=== PATIENT | female | born 1965 | race African-American/Black ===

== ENCOUNTER 2016-06-17 11:21 | Emergency (ER) | payer MEDICAID, OTHER ==
--- NOTE | 2016-06-17 11:39 | ER Document Report ---
ED Medical Screen (RME) - General Chief Complaint: Psych Problem Stated Complaint: IVC W/PAPERS Notes: Patient is a 50-year-old female, past medical history behavioral issues with frequent verbal outbursts, presents on IVC paperwork from [facility] after she was found to be mentally ill and acutely psychotic. Patient will scream obscenities and then will be calm and answer questions. She is requesting a diet Pepsi. Denies any thoughts of hurting herself or anyone else. I have greeted and performed a rapid initial assessment of this patient. A comprehensive ED assessment and evaluation of the patient, analysis of test results and completion of the medical decision making process will be conducted by additional ED providers. TRAVEL OUTSIDE OF THE [place] IN LAST 30 DAYS: No - Related Data Allergies/Adverse Reactions: STEROID Allergy (Uncoded 12/19/15 07:27) Past Medical History - Past Medical History Cardiac Medical History: Reports: Hx Hypertension Neurological Medical History: Reports: Hx Seizures Endocrine Medical History: Reports: Hx Diabetes Mellitus Type 2. Denies: Hx Diabetes Mellitus Type 1 Renal/ Medical History: Denies: Hx Peritoneal Dialysis Psychiatric Medical History: Reports: Hx Bipolar Disorder, Hx Depression, Hx Schizophrenia - Immunizations Hx Diphtheria, Pertussis, Tetanus Vaccination: Yes Physical Exam - Vital signs Vitals: Temp Pulse Resp BP Pulse Ox 98.4 F 98 18 136/109 H 98 06/17/16 11:22 06/17/16 11:22 06/17/16 11:22 06/17/16 11:22 06/17/16 11:22 Course - Vital Signs Vital signs: Temp Pulse Resp BP Pulse Ox 98.4 F 98 18 136/109 H 98 06/17/16 11:22 06/17/16 11:22 06/17/16 11:22 06/17/16 11:22 06/17/16 11:22
[2016-06-17 11:54] LABS: ABSOLUTE LYMPHOCYTES (AUTO) 2.2 10^3/uL (0.5-4.7); ABSOLUTE MONOCYTES (AUTO) 0.7 10^3/uL (0.1-1.4); ABSOLUTE NEUT (AUTO) 3.9 10^3/uL (1.7-8.2); BASOPHILS % (AUTO) 0.7 % (0-2); EOSINOPHILS % (AUTO) 0.4 % (0-6); HEMATOCRIT 41.8 % (36.0-47.0); HEMOGLOBIN 14.3 g/dL (12.0-15.5); HGB HCT DIFFERENCE 1.1; LYMPHOCYTES % (AUTO) 32.2 % (13-45); MEAN CORPUSCULAR HEMOGLOBIN 34.1 pg (27.0-33.4); MEAN CORPUSCULAR HGB CONC 34.3 g/dL (32.0-36.0); MEAN CORPUSCULAR VOLUME 100 fl (80-97); MONOCYTES % (AUTO) 10.7 % (3-13); RED CELL DISTRIBUTION WIDTH 14.4 % (11.5-14.0); WHITE BLOOD COUNT 6.9 10^3/uL (4.0-10.5)
[2016-06-17 12:09] LABS: ALANINE AMINOTRANSFERASE 24 U/L (9-52); ALBUMIN 4.7 g/dL (3.5-5.0); ALKALINE PHOSPHATASE 84 U/L (38-126); ANION GAP 12 (5-19); ASPARTATE AMINO TRANSFERASE 23 U/L (14-36); BILIRUBIN,DIRECT 0.3 mg/dL (0.0-0.4); BLOOD UREA NITROGEN 16 mg/dL (7-20); CALCIUM 10.1 mg/dL (8.4-10.2); CARBON DIOXIDE 34 mmol/L (22-30); CHLORIDE 96 mmol/L (98-107); GLUCOSE 177 mg/dL (75-110); SODIUM 142.4 mmol/L (137-145); TOTAL PROTEIN 8.2 g/dL (6.3-8.2)
[2016-06-17 12:10] LABS: ALCOHOL < 10 mg/dL (NONE DETECTED); POTASSIUM 4.1 mmol/L (3.6-5.0)
--- NOTE | 2016-06-17 14:38 | ER Document Report ---
ED General - General Time seen by provider: 12:00 Mode of Arrival: Ambulatory Information source: Transfer Record Cannot obtain history due to: Uncooperative TRAVEL OUTSIDE OF THE [place] IN LAST 30 DAYS: No <RHIANNA MORGAN - Last Filed: 06/17/16 18:22> <PAULINA WADE - Last Filed: 06/17/16 23:46> <DORY MONGE - Last Filed: 06/18/16 07:51> - General Chief Complaint: Psych Problem Stated Complaint: IVC W/PAPERS Notes: 50-year-old female arrives with involuntary commitment papers stating that she is psychotic and homicidal. Patient does not provide useful history to this examiner Physical Exam: General: Alert, respiratory distress HEENT: Normocephalic. Atraumatic. PERRLA. Extraocular movements intact. Oropharynx clear. Neck: Supple. Non-tender. Respiratory: No respiratory distress. Clear and equal breath sounds bilaterally. Cardiovascular: Regular rate and rhythm. Abdominal: Normal Inspection. Soft, non-tender. No distension. Normal Bowel Sounds. Back: Non-tender. No deformity or step off. Extremities: Extremity is warm to plus pulses of cyanosis no edema Neurological: Patient appears to have intact motor function all extremities but will not cooperate with formal neurologic testing Psychological: Patient will look around but is nonverbal and draws her arms back and makes a fist in a threatening manner when questioned by physician Skin: Warm. Dry. Normal color. (RHIANNA MORGAN) - Related Data Allergies/Adverse Reactions: STEROID Allergy (Uncoded 12/19/15 07:27) Past Medical History - General Cannot obtain history due to: Uncooperative - Social History Smoking Status: Unknown if Ever Smoked Family History: Other - Unobtainable due to altered mental status - Medical History Medical History: Other - Unobtainable due to altered mental status - Past Medical History Cardiac Medical History: Reports: Hx Hypertension Neurological Medical History: Reports: Hx Seizures Endocrine Medical History: Reports: Hx Diabetes Mellitus Type 2. Denies: Hx Diabetes Mellitus Type 1 Renal/ Medical History: Denies: Hx Peritoneal Dialysis Psychiatric Medical History: Reports: Hx Bipolar Disorder, Hx Depression, Hx Schizophrenia - Immunizations Hx Diphtheria, Pertussis, Tetanus Vaccination: Yes <RHIANNA MORGAN - Last Filed: 06/17/16 18:22> Review of Systems - Review of Systems -: Yes ROS unobtainable due to patient's medical condition <RHIANNA MORGAN - Last Filed: 06/17/16 18:22> Course - Laboratory Result Diagrams: 06/17/16 11:40 06/17/16 11:40 <RHIANNA MORGAN - Last Filed: 06/17/16 18:22> - Laboratory Result Diagrams: 06/17/16 11:40 06/17/16 11:40 <PAULINA WADE - Last Filed: 06/17/16 23:46> - Laboratory Result Diagrams: 06/17/16 11:40 06/17/16 11:40 <DORY MONGE - Last Filed: 06/18/16 07:51> - Re-evaluation Re-evalutation: 06/17/16 14:37 Patient at this time is not provided a urine sample without that would materially change her disposition she is medically clear for mental health evaluation 06/17/16 18:20 Involuntary commitment papers were filled out by patient's mental health provider in the outpatient setting. Mental health provider he reports that patient's behavior is at her baseline but given the fact that her behavior currently seems poorly controlled think it would be prudent to keep her here in IVC paperwork at least overnight for reassessment in a.m. (RHIANNA MORGAN) - Vital Signs Vital signs: Temp Pulse Resp BP Pulse Ox 97.6 F 98 16 142/87 H 95 06/18/16 05:00 06/18/16 05:00 06/18/16 05:00 06/18/16 05:00 06/18/16 05:00 - Laboratory Laboratory results interpreted by me: 06/17/16 06/17/16 06/18/16 11:40 11:40 01:00 MCV 100 H MCH 34.1 H RDW 14.4 H Chloride 96 L Carbon Dioxide 34 H Glucose 177 H Urine Urobilinogen 2.0 H Salicylates < 1.0 L Acetaminophen < 10 L - EKG Interpretation by Me Additional EKG results interpreted by me: 06/17/16 23:46 EKG is reviewed and interpreted by me. EKG shows sinus tachycardia with a rate of [address] segment elevation or depression. No ischemic T wave inversions. NH interval and QRS duration are within normal range. QTC intervals prolonged. Old EKG for comparison is from 01/15/2016. (PAULINA WADE) Discharge <RHIANNA MORGAN - Last Filed: 06/17/16 18:22> <PAULINA WADE - Last Filed: 06/17/16 23:46> <DORY MONGE - Last Filed: 06/18/16 07:51> - Discharge Clinical Impression: Schizophrenia Qualifiers: Schizophrenia type: paranoid schizophrenia Qualified Code(s): F20.0 - Paranoid schizophrenia Condition: Fair Disposition: HOME, SELF-CARE Additional Instructions: BE SURE TO TAKE YOUR MEDICATION PRESCRIBED. FOLLOW UP WITH [facility]. RETURN TO THE EMERGENCY ROOM IF ANY NEW OR WORSENING SYMPTOMS. Referrals: VICKY ODONNELL MD [Primary Care Provider] - Follow up as needed
[2016-06-18 01:20] LABS: APPEARANCE,URINE CLEAR; BILIRUBIN,URINE NEGATIVE (NEGATIVE); GLUCOSE, URINE NEGATIVE (NEGATIVE); KETONES,URINE NEGATIVE (NEGATIVE); LEUKOCYTE ESTERASE,URINE NEGATIVE (NEGATIVE); NITRITE,URINE NEGATIVE (NEGATIVE); PROTEIN,URINE NEGATIVE (NEGATIVE); URINE SPECIFIC GRAVITY 1.019
[2016-06-18 01:35] LABS: URINE BARBITURATES SCREEN NEGATIVE; URINE METHADONE SCREEN NEGATIVE; URINE OPIATES LOW NEGATIVE; URINE PHENCYCLIDINE SCREEN NEGATIVE
[2016-06-18] MEDS ORDERED: HALOPERIDOL LACTATE INJ 5 MG/1 ML VIAL IM ONE (01:44)
[2016-06-18] MEDS ORDERED: LORAZEPAM INJ 2 MG/1 ML VIAL IM ONE (01:44)
--- NOTE | 2016-06-18 07:38 | EKG REPORT ---
SEVERITY:- ABNORMAL ECG - SINUS TACHYCARDIA LEFT ATRIAL ABNORMALITY S1,S2,S3 PATTERN LEFT VENTRICULAR HYPERTROPHY PROBABLE INFERIOR INFARCT, OLD BORDERLINE PROLONGED QT INTERVAL : Confirmed by: Abdi Coles MD 18-Jun-2016 07:37:06
[2016-06-18 08:59] VITALS: BP 142/83
--- NOTE | 2016-06-18 12:07 | PSYCHOLOGICAL NOTE ---
Psych Note - Psych Note Psych Note: 50-year-old female arrives with involuntary commitment papers stating that she is psychotic and homicidal. Patient discloses that "that man lie." She continued to state that she just wanted to go home. Patient denies suicidal homicidal ideation; "I never want to hurt myself." Patient was able to provide is black as her sponsor and provided phone number. Patient was calm and speaking in quite childlike voice while drinking her diet pepsi and speaking with clinician. Patient was observed presenting at what is likely considered her new baseline, based on multiple prior episodes to include presentation after multiple days of being medicated, as calm one moment engaging in conversation with soft child like tone of voice, to abruptly yelling out with raspy voice nonsensical type statements, and or demands. Note, this presentation is congruent with previous episodes. Patient is alert and oriented to person, place, time and circumstance. Clinician notes that the patient does attempt to say her name is different when she does not wish to engage this appears to be behavioral and not psychosis. Mood is labile with labile affects. Patient denies suicidal/homicidal ideations , intent, plan, or means. Patient denies A/V H. Thought processes were tangential beyond initial conversation requiring more than a one word answer. Conversational speech was labile, as noted above, patient presented at times with child like voice brittany, and other times with loud and raspy voice. This is considered to be behavioral in nature, specifically an intentional use of the changing voice birttany. Intellectual abilities were estimated within average range. Attention and focus were fair. Insight, judgment, and impulse control were poor. Diagnosis: 295.90 (F20.9) Schizophrenia, per history Patient is psychiatrically cleared for discharge to return to her apartment, and follow up with her psychiatric provider [facility] this week. Patient is considered to be presenting at her baseline, which does include behavioral disturbances, as noted above (yelling out). Patient denies wanting to harm herself or anyone else. Dr. Allison was consulted in regards to the care and management of this patient. ED MD is in not in agreement with recommendations and disposition.
--- NOTE | 2016-06-18 12:09 | PSYCHOLOGICAL NOTE ---
Psych Note - Psych Note Psych Note: 50-year-old female arrives with involuntary commitment papers stating that she is psychotic and homicidal. Patient was observed this morning presenting at what is likely considered her new baseline, based on multiple prior episodes to include presentation after multiple days of being medicated, as calm one moment engaging in conversation with soft child like tone of voice, to abruptly yelling out with raspy voice nonsensical type statements, and or demands. Note, this presentation is congruent with previous episodes. Patient is alert and oriented to person, place, time and circumstance. Mood is labile with labile affects. Patient denies suicidal/homicidal ideations, intent , plan, or means. Patient denies A/V H. Thought processes were tangential beyond initial conversation requiring more than a one word answer. Conversational speech was labile, as noted above, patient presented at times with child like voice brittany, and other times with loud and raspy voice. This is considered to be behavioral in nature, specifically an intentional use of the changing voice brittany. Intellectual abilities were estimated within average range. Attention and focus were fair. Insight, judgment, and impulse control were poor. Diagnosis: 295.90 (F20.9) Schizophrenia, per history Patient is psychiatrically cleared for discharge to return to her apartment, and follow up with her psychiatric provider [facility] this week. Patient is considered to be presenting at her baseline, which does include behavioral disturbances, as noted above (yelling out). Patient denies wanting to harm herself or anyone else. Dr. Allison was consulted in regards to the care and management of this patient. ED MD is in agreement with recommendations and disposition.
== END 2016-06-18 08:00 | disposition home or self-care (01) ==
LOC: ER 11:21
DX: F20.0 Paranoid schizophrenia (principal); I10 Essential (primary) hypertension; E11.9 Type 2 diabetes mellitus without complications; R45.850 Homicidal ideations
CPT/HCPCS: 93005; 99285; 96372; 36415; 80307 ×4; 85025; 80053; 81001; 93010; J1630; J2060

== ENCOUNTER 2016-08-17 13:58 | Emergency (ER) | payer OTHER, MEDICAID ==
--- NOTE | 2016-08-17 14:25 | ER Document Report ---
Addendum entered and electronically signed by ELLA SANDS LPC 08/17/16 17: 04: Discharge - Discharge Clinical Impression: Schizophrenia Condition: Fair Disposition: HOME, SELF-CARE Instructions: Schizophrenia ([facility]) Additional Instructions: Schizophrenia Schizophrenia is a chemical disorder that affects how the brain functions. The exact cause is unknown, but it tends to run in families. It is NOT caused by emotional trauma. Schizophrenia causes disordered thinking, including unusual beliefs and inability to "process" happenings around the patient. Patients with schizophrenia benefit greatly from medicine. These medicines are called antipsychotics. Never stop the medicine without the doctor 's approval. Counselling may help the patient deal with his disease. Schizophrenics require a very ordered environment. Stresses and sudden changes may bring out symptoms. Drugs and alcohol abuse may become problems. Contact the counsellor or crisis line if there are thoughts of suicide or of harming others, or if you become aware of unusual thoughts or beliefs. Patient to fill script for Haldol krista and follow up with already scheduled appointment at [facility] on 08/19/2016 (). Sponsor, Ms. Corrales made aware of plan of care for discharge. Referrals: [facility] [Outside] - Follow up as needed Original Note: ED Psych Disorder / Suicide <ELLA SANDS - Last Filed: 08/17/16 16:58> - General TRAVEL OUTSIDE OF THE [place] IN LAST 30 DAYS: No <GRICEL COOK - Last Filed: 08/17/16 17:14> - General Chief Complaint: Psych Problem Stated Complaint: PSYCH EVAL Time Seen by Provider: 08/17/16 14:22 Notes: The patient is a 51-year-old female, past medical history, paranoid schizophrenia, hypertension, diabetes, and by EMS after she was agitated and screaming. On arrival to the ER, she is requesting a diet Pepsi. She will intermittently scream and then will become cooperative. She has not taken her medication for a few weeks. Denies chest pain, shortness of breath, hallucinations, nausea, vomiting, suicidal ideation or homicidal ideation. (GRICEL COOK) - HPI Notes: Patient is a 51 year old female who presented to the ED today via with erratic behavior. Patient is familiar to this clinician and the [facility] Behavioral Health Team. She was last seen by [facility] Behavioral Health team in June 2016. She reported she went to [facility] today after her Sponsor, Ms. Corrales came to her home to take her. She identified she has an appointment with [facility] and plans on going (good insight and judgment). Today patient has been cooperative and easily redirected by this clinician (good impulse control). She was able to make fair eye contact. She carried on dialogue conversation and initiated conversation. She was alert and oriented. She did not make SI/HI comments or gestures and these were not presenting concerns. [facility] Behavioral Health Paunch Trimmer/Patient Liaison contacted [facility] for care coordination. Patient was seen on 08/12/2016. She last received long lasting Haldol July 29 and is due for the next one 08/19/2016 (). They stated patient came to their office today, was running around, screaming and yelling, and then left. Contacted Sponsor, Hien Corrales (listed as emergency contact on demographic sheet). She identified LE have been to patient's home 3-4 times since Tuesday. She noted patient went to [facility] last and today asking to get her shot. She stated last [facility] told patient she was a week early. Today she stated patient said she needed her shot, her provider (Angeli Macias) was busy seeing another client, patient said she needed to go outside, staff approved and then called the police. Sponsor stated patient has misplaced her Haldol at home which is 5MG QAM and 10MG QHS. She also stated patient is prescribed Trazodone 50MG QHS. Diagnosis: 295.90 (F20.9) Schizophrenia, per history Impression/Plan: Recommendation to discharge patient home. This patient is well known to this hospital and the Behavioral Health team. She appears to be at baseline given she is easily redirected by this clinician and can be calmed down rather quickly. She is being administered Halodol while in the ED and being provided with a script for Haldol pills she takes. She is to follow up with her already scheduled appointment at [facility] 08/19/2016 (). Her sponsor, Ms. Corrales is aware of plan of care. Consulted with Dr. Allison regarding the management and care of patient. (ELLA SANDS) - Related Data Allergies/Adverse Reactions: STEROID Allergy (Uncoded 12/19/15 07:27) Past Medical History - General Information source: Patient - Social History Smoking Status: Current Every Day Smoker Family History: Other - Unobtainable due to altered mental status - Past Medical History Cardiac Medical History: Reports: Hx Hypertension Neurological Medical History: Reports: Hx Seizures Endocrine Medical History: Reports: Hx Diabetes Mellitus Type 2. Denies: Hx Diabetes Mellitus Type 1 Renal/ Medical History: Denies: Hx Peritoneal Dialysis Psychiatric Medical History: Reports: Hx Bipolar Disorder, Hx Depression, Hx Schizophrenia - Immunizations Hx Diphtheria, Pertussis, Tetanus Vaccination: Yes <GRICEL COOK - Last Filed: 08/17/16 17:14> Review of Systems <SHAVONELLA - Last Filed: 08/17/16 16:58> <GRICEL COOK - Last Filed: 08/17/16 17:14> - Review of Systems Notes: REVIEW OF SYSTEMS: CONSTITUTIONAL: -fevers, -chills EENT: -eye pain, -difficulty swallowing, -nasal congestion CARDIOVASCULAR:-chest pain, -syncope. RESPIRATORY: -cough, -SOB GASTROINTESTINAL: -abdominal pain, - nausea, -vomiting, -diarrhea GENITOURINARY: -dysuria, -hematuria MUSCULOSKELETAL: -back pain, -neck pain SKIN: -rash or skin lesions. HEMATOLOGIC: -easy bruising or bleeding. LYMPHATIC: -swollen, enlarged glands. NEUROLOGICAL: -altered mental status or loss of consciousness, -headache, - neurologic symptoms PSYCHIATRIC: +agitation ALL OTHER SYSTEMS REVIEWED AND NEGATIVE. (GRICEL COOK) Physical Exam <ELLA SANDS - Last Filed: 08/17/16 16:58> <GRICEL COOK - Last Filed: 08/17/16 17:14> - Notes Notes: PHYSICAL EXAMINATION: GENERAL: Well-appearing, well-nourished and in no acute distress. HEAD: Atraumatic, normocephalic. EYES: Pupils equal round and reactive to light, extraocular movements intact, sclera anicteric, conjunctiva are normal. ENT: nares patent, oropharynx clear without exudates. Moist mucous membranes. NECK: Normal range of motion, supple without lymphadenopathy LUNGS: Breath sounds clear to auscultation bilaterally and equal. No wheezes rales or rhonchi. HEART: Tachycardia, regular rhythm ABDOMEN: Soft, nontender, normoactive bowel sounds. No guarding, no rebound. No masses appreciated. EXTREMITIES: Normal range of motion, no pitting or edema. No cyanosis. NEUROLOGICAL: Cranial nerves grossly intact. Normal speech, normal gait. Normal sensory and motor exams. PSYCH: Agitated, but then will become cooperative. No suicidal or homicidal ideation. SKIN: Warm, Dry, normal turgor, no rashes or lesions noted. (GRICEL COOK) Course - Laboratory Result Diagrams: 08/17/16 14:30 08/17/16 14:30 <ELLA SANDS - Last Filed: 08/17/16 16:58> - Laboratory Result Diagrams: 08/17/16 14:30 08/17/16 14:30 - EKG Interpretation by Me EKG shows normal: Sinus rhythm, [place], Intervals, QRS Complexes, ST-T Waves Rate: Tachycardia When compared to previous EKG there are: No significant change <GRICEL COOK - Last Filed: 08/17/16 17:14> - Re-evaluation Re-evalutation: Pt without SI or HI. Pt will begin screaming and then is redirectable and cooperative. Will restart her BP and DM medications and have mental health evaluate patient for acute psychosis. 08/17/16 16:32 Pt related by mental health. She is calm. Dr. Allison is recommending 10 mg IM Haldol. She is scheduled for her [id number] Haldol IM shot in [address] [facility]. Will provide her with a refill of her haldol. She has her BP meds at home. (GRICEL COOK) - Laboratory Laboratory results interpreted by me: 08/17/16 08/17/16 14:30 14:30 Hgb 15.7 H Potassium 3.2 L Glucose 172 H Salicylates < 1.0 L Acetaminophen < 10 L Discharge <ELLA SANDS - Last Filed: 08/17/16 16:58> <GRICEL COOK - Last Filed: 08/17/16 17:14> - Discharge Clinical Impression: Schizophrenia Qualifiers: Schizophrenia type: unspecified Qualified Code(s): F20.9 - Schizophrenia, unspecified Condition: Fair Disposition: HOME, SELF-CARE Instructions: Schizophrenia ([facility]) Additional Instructions: Schizophrenia Schizophrenia is a chemical disorder that affects how the brain functions. The exact cause is unknown, but it tends to run in families. It is NOT caused by emotional trauma. Schizophrenia causes disordered thinking, including unusual beliefs and inability to "process" happenings around the patient. Patients with schizophrenia benefit greatly from medicine. These medicines are called antipsychotics. Never stop the medicine without the doctor 's approval. Counselling may help the patient deal with his disease. Schizophrenics require a very ordered environment. Stresses and sudden changes may bring out symptoms. Drugs and alcohol abuse may become problems. Contact the counsellor or crisis line if there are thoughts of suicide or of harming others, or if you become aware of unusual thoughts or beliefs. Patient to fill script for Haldol krista and follow up with already scheduled appointment at [facility] on 08/19/2016 (). Sponsor, Ms. Corrales made aware of plan of care for discharge. Prescriptions: Haloperidol [Haldol 5 mg Tablet] 5 mg PO Q12H 7 Days Referrals: [facility] [Outside] - Follow up as needed
[2016-08-17] MEDS ORDERED: HALOPERIDOL LACTATE INJ 5 MG/1 ML VIAL IM ONE ×2 (14:31→16:32)
[2016-08-17 14:43] LABS: ABSOLUTE BASOPHILS # (AUTO) 0.1 10^3/uL (0.0-0.2); ABSOLUTE LYMPHOCYTES (AUTO) 1.7 10^3/uL (0.5-4.7); ABSOLUTE MONOCYTES (AUTO) 0.8 10^3/uL (0.1-1.4); ABSOLUTE NEUT (AUTO) 5.2 10^3/uL (1.7-8.2); EOSINOPHILS % (AUTO) 0.2 % (0-6); HEMATOCRIT 46.1 % (36.0-47.0); HEMOGLOBIN 15.7 g/dL (12.0-15.5); LYMPHOCYTES % (AUTO) 21.5 % (13-45); MEAN CORPUSCULAR HEMOGLOBIN 32.8 pg (27.0-33.4); MEAN CORPUSCULAR VOLUME 97 fl (80-97); MONOCYTES % (AUTO) 9.7 % (3-13); RED BLOOD COUNT 4.77 10^6/uL (3.72-5.28); RED CELL DISTRIBUTION WIDTH 13.1 % (11.5-14.0); SEGMENTED NEUTROPHILS % (AUTO) 67.6 % (42-78); WHITE BLOOD COUNT 7.7 10^3/uL (4.0-10.5)
[2016-08-17] MEDS ORDERED: PROPRANOLOL HCL 20 MG TABLET PO SCH (14:45)
[2016-08-17] MEDS ORDERED: HYDROCHLOROTHIAZIDE 25 MG TABLET PO SCH (15:00)
[2016-08-17] MEDS ORDERED: LOSARTAN POTASSIUM 50 MG TABLET PO SCH (15:00)
[2016-08-17 15:06] LABS: ALANINE AMINOTRANSFERASE 19 U/L (9-52); ALBUMIN 4.6 g/dL (3.5-5.0); ALKALINE PHOSPHATASE 101 U/L (38-126); ANION GAP 12 (5-19); ASPARTATE AMINO TRANSFERASE 24 U/L (14-36); BILIRUBIN,DIRECT 0.3 mg/dL (0.0-0.4); BILIRUBIN,TOTAL 0.6 mg/dL (0.2-1.3); BLOOD UREA NITROGEN 14 mg/dL (7-20); CALCIUM 9.7 mg/dL (8.4-10.2); CARBON DIOXIDE 29 mmol/L (22-30); CHLORIDE 99 mmol/L (98-107); CREATININE RESULT 0.86 mg/dL (0.52-1.25); GLUCOSE 172 mg/dL (75-110); POTASSIUM 3.2 mmol/L (3.6-5.0); SODIUM 139.8 mmol/L (137-145); TOTAL PROTEIN 8.2 g/dL (6.3-8.2)
[2016-08-17 15:11] LABS: ALCOHOL < 10 mg/dL (NONE DETECTED)
[2016-08-17 17:25] VITALS: BP 150/99
[2016-08-17] MEDS ORDERED: METFORMIN HCL 500 MG TABLET PO SCH (18:00)
--- NOTE | 2016-08-17 22:28 | EKG REPORT ---
SEVERITY:- ABNORMAL ECG - SINUS TACHYCARDIA APC XANDER, CONSIDER BIATRIAL ABNORMALITIES LEFT ANTERIOR FASCICULAR BLOCK LEFT VENTRICULAR HYPERTROPHY : Confirmed by: Nisha Fitzgerald 17-Aug-2016 22:27:41
== END 2016-08-17 18:00 | disposition home or self-care (01) ==
LOC: ER 13:58
DX: F20.9 Schizophrenia, unspecified (principal); F17.200 Nicotine dependence, unspecified, uncomplicated; I10 Essential (primary) hypertension; E11.9 Type 2 diabetes mellitus without complications; Z91.14 Patient's other noncompliance with medication regimen
CPT/HCPCS: 93005; 99284; 96372; 36415; 80307 ×3; 85025; 80053; 93010; J1630

== ENCOUNTER 2016-08-19 09:32 | Emergency (ER) | payer OTHER, MEDICAID ==
[2016-08-19 10:50] LABS: ABSOLUTE LYMPHOCYTES (AUTO) 1.3 10^3/uL (0.5-4.7); ABSOLUTE MONOCYTES (AUTO) 0.4 10^3/uL (0.1-1.4); ABSOLUTE NEUT (AUTO) 3.9 10^3/uL (1.7-8.2); BASOPHILS % (AUTO) 0.5 % (0-2); EOSINOPHILS % (AUTO) 0.4 % (0-6); HEMATOCRIT 45.7 % (36.0-47.0); HEMOGLOBIN 15.3 g/dL (12.0-15.5); HGB HCT DIFFERENCE 0.2; LYMPHOCYTES % (AUTO) 22.4 % (13-45); MEAN CORPUSCULAR HEMOGLOBIN 32.6 pg (27.0-33.4); MEAN CORPUSCULAR HGB CONC 33.5 g/dL (32.0-36.0); MEAN CORPUSCULAR VOLUME 97 fl (80-97); MONOCYTES % (AUTO) 7.5 % (3-13); RED BLOOD COUNT 4.69 10^6/uL (3.72-5.28); RED CELL DISTRIBUTION WIDTH 13.2 % (11.5-14.0); SEGMENTED NEUTROPHILS % (AUTO) 69.2 % (42-78); WHITE BLOOD COUNT 5.6 10^3/uL (4.0-10.5)
[2016-08-19 11:00] LABS: ALANINE AMINOTRANSFERASE 22 U/L (9-52); ALBUMIN 4.5 g/dL (3.5-5.0); ALKALINE PHOSPHATASE 93 U/L (38-126); ANION GAP 13 (5-19); ASPARTATE AMINO TRANSFERASE 23 U/L (14-36); BILIRUBIN,DIRECT 0.3 mg/dL (0.0-0.4); BILIRUBIN,TOTAL 0.7 mg/dL (0.2-1.3); BLOOD UREA NITROGEN 14 mg/dL (7-20); CALCIUM 9.5 mg/dL (8.4-10.2); CARBON DIOXIDE 28 mmol/L (22-30); CHLORIDE 101 mmol/L (98-107); CREATININE RESULT 0.89 mg/dL (0.52-1.25); GLUCOSE 164 mg/dL (75-110); SODIUM 142.4 mmol/L (137-145); TOTAL PROTEIN 8.2 g/dL (6.3-8.2)
[2016-08-19 11:02] LABS: ALCOHOL < 10 mg/dL (NONE DETECTED); POTASSIUM 3.2 mmol/L (3.6-5.0)
--- NOTE | 2016-08-19 12:47 | ER Document Report ---
ED Psych Disorder / Suicide - General Mode of Arrival: Medic Information source: Patient Cannot obtain history due to: Uncooperative TRAVEL OUTSIDE OF THE [place] IN LAST 30 DAYS: No - HPI Patient complains to provider of: Agitated Onset: Just prior to arrival Onset was: Sudden Suicide Risk Factors: Bipolar, Depressed, Schizophrenia Recently seen / treated by doctor: Yes - 08/17/2016 here in the emergency department <LISA SAM - Last Filed: 08/19/16 12:41> <DORY MONGE - Last Filed: 08/19/16 15:57> - General Chief Complaint: Psych Problem Stated Complaint: PSYCH EVAL Time Seen by Provider: 08/19/16 09:48 Notes: Patient is a 51-year-old female, with history of schizophrenia, bipolar disorder , and depression, presenting to the emergency department today from [facility] after she showed up very early for her appointment to receive her Haldol injection, and became upset with the staff when they asked her to come back at her appointment time. She apparently became very agitated throwing a fit, so they IVC'd her and sent her over here to the emergency department. Patient was seen here in the emergency department 2 days ago with similar behavior. (LISA SAM) - Related Data Allergies/Adverse Reactions: STEROID Allergy (Uncoded 08/19/16 11:38) Past Medical History - General Information source: Dr. Gutierrez - Patient was IVCed by [facility] because she was "threating staff and other patients", [facility] Records - Social History Smoking Status: Current Every Day Smoker Chew tobacco use (# tins/day): No Family History: Other - Unobtainable due to altered mental status - Past Medical History Cardiac Medical History: Reports: Hx Hypertension Neurological Medical History: Reports: Hx Seizures Endocrine Medical History: Reports: Hx Diabetes Mellitus Type 2 Psychiatric Medical History: Reports: Hx Bipolar Disorder, Hx Depression, Hx Schizophrenia - Immunizations Hx Diphtheria, Pertussis, Tetanus Vaccination: Yes <LISA SAM - Last Filed: 08/19/16 12:41> Review of Systems - Review of Systems -: Yes ROS unobtainable due to patient's medical condition <LISA SAM - Last Filed: 08/19/16 12:41> Course - Laboratory Result Diagrams: 08/19/16 10:30 08/19/16 10:30 <LISA SAM - Last Filed: 08/19/16 12:41> - Laboratory Result Diagrams: 08/19/16 10:30 08/19/16 10:30 <DORY MONGE - Last Filed: 08/19/16 15:57> - Laboratory Laboratory results interpreted by me: 08/19/16 10:30 Potassium 3.2 L Glucose 164 H Salicylates < 1.0 L Acetaminophen < 10 L Discharge <LISA SAM - Last Filed: 08/19/16 12:41> <DORY MONGE - Last Filed: 08/19/16 15:57> - Discharge Clinical Impression: Schizophrenia Qualifiers: Schizophrenia type: unspecified Qualified Code(s): F20.9 - Schizophrenia, unspecified Condition: Stable Disposition: HOME, SELF-CARE Additional Instructions: Schizophrenia Schizophrenia is a chemical disorder that affects how the brain functions. The exact cause is unknown, but it tends to run in families. It is NOT caused by emotional trauma. Schizophrenia causes disordered thinking, including unusual beliefs and inability to "process" happenings around the patient. Patients with schizophrenia benefit greatly from medicine. These medicines are called antipsychotics. Never stop the medicine without the doctor 's approval. Counselling may help the patient deal with his disease. Schizophrenics require a very ordered environment. Stresses and sudden changes may bring out symptoms. Drugs and alcohol abuse may become problems. Contact the counsellor or crisis line if there are thoughts of suicide or of harming others, or if you become aware of unusual thoughts or beliefs Please follow up with your out patient mental health provider, [facility] in 3-5 days. AT ANY TIME, IF YOUR SYMPTOMS CHANGE SIGNIFICANTLY OR WORSEN OR YOU DEVELOP NEW SYMPTOMS, RETURN TO THE EMERGENCY DEPARTMENT IMMEDIATELY FOR RE-EVALUATION. OUR GOAL IS TO PROVIDE EXCELLENT MEDICAL CARE! WE HOPE THAT WE HAVE MET YOUR EXPECTATIONS DURING YOUR EMERGENCY DEPARTMENT VISIT AND THAT YOU FEEL YOU HAVE RECEIVED EXCELLENT CARE! Referrals: [facility] [Outside] - Follow up in 3-5 days Scribe Attestation: 08/19/16 15:57 I personally performed the services described in the documentation, reviewed and edited the documentation which was dictated to the scribe in my presence, and it accurately records my words and actions. (DORY MONGE) Scribe Documentation - Scribe Written by Scribe:: Judy Lima, 08/19/2016 1241 acting as scribe for :: Chani <LISA SAM - Last Filed: 08/19/16 12:41>
[2016-08-19] MEDS ORDERED: HALOPERIDOL DECANOATE INJ 100 MG/1 ML VIAL IM PRN ×2 (13:08→13:37)
[2016-08-19] MEDS ORDERED: BENZTROPINE MESYLATE 1 MG TABLET PO ONE (13:09)
--- NOTE | 2016-08-19 14:05 | ER Document Report ---
ED Psych Disorder / Suicide - General Chief Complaint: Psych Problem Stated Complaint: PSYCH EVAL Time Seen by Provider: 08/19/16 09:48 Information source: Patient, [facility] Office - Patient was IVCed by [facility] because she was "threating staff and other patients" TRAVEL OUTSIDE OF THE [place] IN LAST 30 DAYS: No - HPI Patient complains to provider of: Aggression Onset: This morning Onset was: Sudden Notes: Patient is a 51-year-old female, with history of schizophrenia, bipolar disorder , and depression, presenting to the emergency department today from [facility] after she showed up very early for her appointment to receive her Haldol injection, and became upset with the staff when they asked her to come back at her appointment time. She apparently became very agitated throwing a fit, so they IVC'd her and sent her over here to the emergency department. Patient was seen here in the emergency department 2 days ago with similar behavior. Patient is observed resting peacefully. when clinician attempted to engage, patient started to yell. Patient states she saw the angles in the movie and yelled at clinician stating "you saw it too." Patient is well known to this clinician and department. Patient has a history of behaviour disturbances that include yelling but when asked if she would like something to drink she immediately calms and requests a diet pepsi. [facility] disclosed the patient came in early to her appointment for her Haldol injection and became verbally aggressive, threatening staff and other patients. Patient was was denied services and IVCed because they felt she needed a higher level of care and was danger to self and "public." Clinician contacted nAil Carter, disclosed the patient does not have an ACT Team and there is not current paperwork requesting higher level of care from her home outpatient provider. Anil confirmed the only identity that can submit for higher level of care, to include ACT TEAM, would be the home outpatient provider identified as [facility]. Patient is alert and oriented to person, place, time and circumstance. Mood is labile with labile affects. Patient denies suicidal/homicidal ideations, intent , plan, or means. Patient denies A/V H. Thought processes were tangential beyond initial conversation requiring more than a one word answer. Conversational speech was labile, as noted above, patient presented at times with child like voice brittany, and other times with loud and raspy voice. This is considered to be behavioral in nature, specifically an intentional use of the changing voice brittany. Intellectual abilities were estimated within average range. Attention and focus were fair. Insight, judgment, and impulse control were poor. Diagnosis: 295.90 (F20.9) Schizophrenia, per history Patient is recommended for rescind of IVC and considered psychiatrically cleared for discharge to return to her apartment, and follow up with her psychiatric provider [facility] this week. Patient is considered to be presenting at her baseline, which does include behavioral disturbances, as noted above ( yelling out). [facility] notes concern the patient is verbal aggressive and needs a higher level of care and is a danger to herself and others, Patient is at baseline identified Dec 2015. This was identified after patient suffered from a UTI; Patient received continued medication management, as well as administering her monthly IM, with continued behavioral outbursts. That patient's disease was also noted in Dec 2015 to have progressed to now include ongoing hallucinations. Patient does continue to experience hallucinations; however, these are chronic in nature as observed over the past few days. Patient denies wanting to harm herself or anyone else. Dr. Allison was consulted in regards to the care and management of this patient. ED MD is in agreement with recommendations and disposition. - Related Data Allergies/Adverse Reactions: STEROID Allergy (Uncoded 08/19/16 11:38) Past Medical History - Social History Smoking Status: Smoker,Current Status Unk Family History: Other - Unobtainable due to altered mental status - Past Medical History Cardiac Medical History: Reports: Hx Hypertension Neurological Medical History: Reports: Hx Seizures Endocrine Medical History: Reports: Hx Diabetes Mellitus Type 2. Denies: Hx Diabetes Mellitus Type 1 Renal/ Medical History: Denies: Hx Peritoneal Dialysis Psychiatric Medical History: Reports: Hx Bipolar Disorder, Hx Depression, Hx Schizophrenia - Immunizations Hx Diphtheria, Pertussis, Tetanus Vaccination: Yes Course - Laboratory Result Diagrams: 08/19/16 10:30 08/19/16 10:30 Laboratory results interpreted by me: 08/19/16 10:30 Potassium 3.2 L Glucose 164 H Salicylates < 1.0 L Acetaminophen < 10 L Discharge - Discharge Clinical Impression: Schizophrenia Qualifiers: Schizophrenia type: unspecified Qualified Code(s): F20.9 - Schizophrenia, unspecified Condition: Stable Disposition: HOME, SELF-CARE Additional Instructions: Schizophrenia Schizophrenia is a chemical disorder that affects how the brain functions. The exact cause is unknown, but it tends to run in families. It is NOT caused by emotional trauma. Schizophrenia causes disordered thinking, including unusual beliefs and inability to "process" happenings around the patient. Patients with schizophrenia benefit greatly from medicine. These medicines are called antipsychotics. Never stop the medicine without the doctor 's approval. Counselling may help the patient deal with his disease. Schizophrenics require a very ordered environment. Stresses and sudden changes may bring out symptoms. Drugs and alcohol abuse may become problems. Contact the counsellor or crisis line if there are thoughts of suicide or of harming others, or if you become aware of unusual thoughts or beliefs Please follow up with your out patient mental health provider, [facility] in 3-5 days. AT ANY TIME, IF YOUR SYMPTOMS CHANGE SIGNIFICANTLY OR WORSEN OR YOU DEVELOP NEW SYMPTOMS, RETURN TO THE EMERGENCY DEPARTMENT IMMEDIATELY FOR RE-EVALUATION. OUR GOAL IS TO PROVIDE EXCELLENT MEDICAL CARE! WE HOPE THAT WE HAVE MET YOUR EXPECTATIONS DURING YOUR EMERGENCY DEPARTMENT VISIT AND THAT YOU FEEL YOU HAVE RECEIVED EXCELLENT CARE! Referrals: [facility] [Outside] - Follow up in 3-5 days
--- NOTE | 2016-08-19 22:21 | EKG REPORT ---
SEVERITY:- ABNORMAL ECG - SINUS TACHYCARDIA WITH APC VENTRICULAR PREMATURE COMPLEX PROMINENT P WAVES, NONDIAGNOSTIC INCOMPLETE RIGHT BUNDLE BRANCH BLOCK PROBABLE LEFT VENTRICULAR HYPERTROPHY : Confirmed by: Nisha Fitzgerald 19-Aug-2016 22:21:09
== END 2016-08-19 16:15 | disposition home or self-care (01) ==
LOC: ER 09:32
DX: F20.9 Schizophrenia, unspecified (principal); E87.6 Hypokalemia; I95.9 Hypotension, unspecified; I47.1 Supraventricular tachycardia; T75.4XXA Electrocution, initial encounter; Y35.893A Legal intervention involving other specified means, suspect injured, initial encounter; Z88.8 Allergy status to other drugs, medicaments and biological substances; I10 Essential (primary) hypertension; E11.9 Type 2 diabetes mellitus without complications
CPT/HCPCS: 93005; 99284; 96372; 36415; 80307 ×3; 85025; 80053; 93010; J3490; J1631

== ENCOUNTER 2016-08-20 05:15 | Emergency (ER) | payer MEDICAID ==
[2016-08-20] MEDS ORDERED: ADENOSINE INJ/PF 6 MG/2 ML SDV IV ONE ×2 (05:38→06:30)
[2016-08-20] MEDS ORDERED: NORMAL SALINE 1000 ML 1,000 ML IV PRN (05:46)
[2016-08-20] MEDS ORDERED: LORAZEPAM INJ 2 MG/1 ML VIAL IV ONE (05:52)
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
[2016-08-20] MEDS ORDERED: NORMAL SALINE 1000 ML 1,000 ML IV ONE (06:10)
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
[2016-08-20 06:35] LABS: APPEARANCE,URINE CLEAR; BILIRUBIN,URINE NEGATIVE (NEGATIVE); GLUCOSE, URINE NEGATIVE (NEGATIVE); KETONES,URINE TRACE mg/dL (NEGATIVE); LEUKOCYTE ESTERASE,URINE NEGATIVE (NEGATIVE); NITRITE,URINE NEGATIVE (NEGATIVE); PROTEIN,URINE 30 mg/dL (NEGATIVE); URINE SPECIFIC GRAVITY 1.006; UROBILINOGEN,URINE NEGATIVE mg/dL (<2.0)
[2016-08-20 06:51] LABS: URINE BARBITURATES SCREEN NEGATIVE; URINE METHADONE SCREEN NEGATIVE; URINE OPIATES LOW NEGATIVE; URINE PHENCYCLIDINE SCREEN NEGATIVE
[2016-08-20 07:03] LABS: ABSOLUTE LYMPHOCYTES (AUTO) 0.9 10^3/uL (0.5-4.7); ABSOLUTE MONOCYTES (AUTO) 0.7 10^3/uL (0.1-1.4); ABSOLUTE NEUT (AUTO) 5.6 10^3/uL (1.7-8.2); BASOPHILS % (AUTO) 0.4 % (0-2); EOSINOPHILS % (AUTO) 0.1 % (0-6); HEMATOCRIT 44.9 % (36.0-47.0); HEMOGLOBIN 14.9 g/dL (12.0-15.5); HGB HCT DIFFERENCE -0.2; LYMPHOCYTES % (AUTO) 12.1 % (13-45); MEAN CORPUSCULAR HEMOGLOBIN 32.7 pg (27.0-33.4); MEAN CORPUSCULAR HGB CONC 33.2 g/dL (32.0-36.0); MEAN CORPUSCULAR VOLUME 98 fl (80-97); MONOCYTES % (AUTO) 9.9 % (3-13); RED BLOOD COUNT 4.56 10^6/uL (3.72-5.28); RED CELL DISTRIBUTION WIDTH 12.8 % (11.5-14.0); SEGMENTED NEUTROPHILS % (AUTO) 77.5 % (42-78); WHITE BLOOD COUNT 7.3 10^3/uL (4.0-10.5)
[2016-08-20 07:21] LABS: ALANINE AMINOTRANSFERASE 25 U/L (9-52); ALCOHOL < 10 mg/dL (NONE DETECTED); ALKALINE PHOSPHATASE 87 U/L (38-126); ANION GAP 14 (5-19); ASPARTATE AMINO TRANSFERASE 24 U/L (14-36); BILIRUBIN,DIRECT 0.3 mg/dL (0.0-0.4); BILIRUBIN,TOTAL 0.7 mg/dL (0.2-1.3); BLOOD UREA NITROGEN 15 mg/dL (7-20); CALCIUM 9.4 mg/dL (8.4-10.2); CARBON DIOXIDE 26 mmol/L (22-30); CHLORIDE 105 mmol/L (98-107); CREATINE KINASE 205 U/L (30-135); CREATININE RESULT 0.81 mg/dL (0.52-1.25); GLUCOSE 132 mg/dL (75-110); MAGNESIUM 1.7 mg/dL (1.6-2.3); SODIUM 144.5 mmol/L (137-145); TOTAL PROTEIN 7.5 g/dL (6.3-8.2)
[2016-08-20 07:33] LABS: CREATINE KINASE MB 1.19 ng/mL (<4.55)
[2016-08-20 07:39] LABS: POTASSIUM 2.7 mmol/L (3.6-5.0)
[2016-08-20] MEDS ORDERED: POTASSIUM CHLORIDE 10 MEQ TABLET.SA PO ONE (07:40)
[2016-08-20 07:47] LABS: TROPONIN I 0.041 ng/mL
[2016-08-20 09:07] LABS: FREE T3 4.42 pg/mL (2.77-5.27)
[2016-08-20] MEDS ORDERED: BENZTROPINE MESYLATE INJ 2 MG/2 ML AMPULE IM SCH (12:15)
[2016-08-20] MEDS ORDERED: HALOPERIDOL LACTATE INJ 5 MG/1 ML VIAL IM SCH (12:15)
[2016-08-20] MEDS ORDERED: ZIPRASIDONE MESYLATE INJ/PF 20 MG SDV IM ONE ×2 (15:13→19:00)
[2016-08-20] MEDS ORDERED: CLONIDINE HCL 0.1 MG TABLET PO ONE ×2 (15:13→18:30)
[2016-08-20] MEDS ORDERED: BENZTROPINE MESYLATE INJ 2 MG/2 ML AMPULE IM ONE (16:00)
[2016-08-20] MEDS: HALOPERIDOL LACTATE INJ 5 MG/1 ML VIAL IM SCH (18:40)
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
[2016-08-20] MEDS ORDERED: CLONIDINE 0.2 MG/24 HR PATCH.TDWK TD ONE (20:20)
[2016-08-20] MEDS ORDERED: POTASSIUM CHLORIDE 20 MEQ/15 ML UDCUP PO ONE (20:20)
[2016-08-20] MEDS ORDERED: CLONIDINE 0.2 MG/24 HR PATCH.TDWK ONE (21:42)
[2016-08-20] MEDS: METOPROLOL TARTRATE 25 MG TABLET PO SCH (23:27)
[2016-08-21] MEDS ORDERED: ZIPRASIDONE MESYLATE INJ/PF 20 MG SDV IM ONE ×2 (00:02→08:39)
[2016-08-21] MEDS ORDERED: POTASSIUM CHLORIDE 20 MEQ/15 ML UDCUP PO ONE ×2 (01:36→10:00)
[2016-08-21] MEDS ORDERED: LORAZEPAM INJ 2 MG/1 ML VIAL IV ONE (04:35)
[2016-08-21 08:54] LABS: ALANINE AMINOTRANSFERASE 27 U/L (9-52); ALBUMIN 3.8 g/dL (3.5-5.0); ALKALINE PHOSPHATASE 78 U/L (38-126); ANION GAP 10 (5-19); ASPARTATE AMINO TRANSFERASE 33 U/L (14-36); BILIRUBIN,DIRECT 0.3 mg/dL (0.0-0.4); BILIRUBIN,TOTAL 1.2 mg/dL (0.2-1.3); BLOOD UREA NITROGEN 12 mg/dL (7-20); CALCIUM 9.4 mg/dL (8.4-10.2); CARBON DIOXIDE 25 mmol/L (22-30); CHLORIDE 105 mmol/L (98-107); CREATININE RESULT 0.73 mg/dL (0.52-1.25); GLUCOSE 179 mg/dL (75-110); MAGNESIUM 1.6 mg/dL (1.6-2.3); SODIUM 139.6 mmol/L (137-145)
[2016-08-21 08:55] LABS: POTASSIUM 3.7 mmol/L (3.6-5.0)
[2016-08-21] MEDS: METOPROLOL TARTRATE 25 MG TABLET PO SCH ×2 (09:08→22:05)
[2016-08-21] MEDS: ARIPIPRAZOLE 5 MG TABLET PO SCH (09:08)
--- NOTE | 2016-08-21 09:53 | ER Document Report ---
Doctor's Note Notes: 08/21/16 09:52 Patient is resting comfortably on stretcher, nursing staff reports an uneventful morning, when she received some medication, she is currently being removed from restraint devices, we will continue to monitor her throughout the day, labs and chart were reviewed, no concerns at this point
[2016-08-21] MEDS: BENZTROPINE MESYLATE INJ 2 MG/2 ML AMPULE IM SCH (11:48)
[2016-08-21] MEDS: HALOPERIDOL LACTATE INJ 5 MG/1 ML VIAL IM SCH ×2 (11:48→18:18)
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
[2016-08-22] MEDS: HALOPERIDOL LACTATE INJ 5 MG/1 ML VIAL IM SCH ×2 (10:21→18:34)
[2016-08-22] MEDS: BENZTROPINE MESYLATE INJ 2 MG/2 ML AMPULE IM SCH (10:21)
[2016-08-22] MEDS: METOPROLOL TARTRATE 25 MG TABLET PO SCH ×2 (10:21→23:45)
--- NOTE | 2016-08-22 10:55 | ER Document Report ---
Doctor's Note Notes: 08/22/16 10:54 Patient resting comfortably on stretcher no reported events overnight, she has no complaints at present time, she is pleasant and interactive, answers yes and no questions without difficulty, and chart was reviewed including vital signs which remained stable overnight, we will continue to monitor patient until placement arrangements can be made
--- NOTE | 2016-08-22 12:55 | EKG REPORT ---
SEVERITY:- ABNORMAL ECG - SUPRAVENTRICULAR TACHYCARDIA MARKEDLY POSTERIOR QRS AXIS PROBABLE LEFT VENTRICULAR HYPERTROPHY ST DEPRESSION, PROBABLY RATE RELATED : Confirmed by: Lynnette Webb MD 22-Aug-2016 12:54:41
[2016-08-23] MEDS ORDERED: HALOPERIDOL LACTATE INJ 5 MG/1 ML VIAL IM ONE ×2 (02:04→07:39)
[2016-08-23] MEDS ORDERED: DIPHENHYDRAMINE HCL 50 MG/ML VIAL IM ONE ×3 (02:05→22:39)
[2016-08-23] MEDS ORDERED: HYDROCHLOROTHIAZIDE 25 MG TABLET PO ONE (03:46)
--- NOTE | 2016-08-23 09:44 | ER Document Report ---
Doctor's Note Notes: 08/23/16 09:43 Patient resting comfortably on stretcher, she is once again and 4 point restraints for safety reasons, when I attempt to engage in a conversation her answers are not congruent with the questions I am asking, the plan is for mental health apparently was to discharge patient today, however we further discussed her current condition and I do not think it is safe for her to be discharged home, therefore a referral to Adult Protective Services will be made and social work will be contacted to attempt to find appropriate placement for this patient
[2016-08-23] MEDS: BENZTROPINE MESYLATE INJ 2 MG/2 ML AMPULE IM SCH (10:52)
[2016-08-23] MEDS: METOPROLOL TARTRATE 25 MG TABLET PO SCH (10:52)
[2016-08-23] MEDS: ARIPIPRAZOLE 5 MG TABLET PO SCH (12:28)
[2016-08-23] MEDS ORDERED: MIDAZOLAM 2 MG/2 ML INJ IM ONE (22:39)
[2016-08-24] MEDS ORDERED: MIDAZOLAM 2 MG/2 ML INJ IM ONE (03:03)
[2016-08-24] MEDS: METOPROLOL TARTRATE 25 MG TABLET PO SCH ×2 (09:52→23:01)
[2016-08-24] MEDS: BENZTROPINE MESYLATE INJ 2 MG/2 ML AMPULE IM SCH (09:53)
[2016-08-24] MEDS: ARIPIPRAZOLE 5 MG TABLET PO SCH (09:53)
--- NOTE | 2016-08-24 10:37 | ER Document Report ---
Doctor's Note Notes: 08/24/16 10:35 Patient is sitting up in bed, out of restraints and behaving this morning. There is still no suitable disposition plan. Another attempt will be made to contact Adult Protective Services. My understanding is several petitions and affidavits have been sent requesting they take guardianship of this patient, but that has still not happened. Her recurrent outbursts and behavior issues continue to cause concern about her safety if she is released on her own accord.
[2016-08-24] MEDS ORDERED: ZIPRASIDONE MESYLATE INJ/PF 20 MG SDV IM ONE (21:32)
[2016-08-25] MEDS: BENZTROPINE MESYLATE INJ 2 MG/2 ML AMPULE IM SCH (10:02)
[2016-08-25] MEDS: ARIPIPRAZOLE 5 MG TABLET PO SCH (10:02)
[2016-08-25] MEDS: METOPROLOL TARTRATE 25 MG TABLET PO SCH (10:03)
--- NOTE | 2016-08-25 10:08 | ER Document Report ---
Doctor's Note Notes: This is a 51-year-old woman with paranoid schizophrenia who is currently being held as an IVC for erratic behavior. See my note on 08/20/2016. Patient was initially aggressive and belligerent and required restraints and gradually improved over the next few days. Unfortunately, she again required restraints for aggressive behavior 08/23/2016. She improved somewhat yesterday, she has had recurrent outbursts and behavioral issues. Adult protective services are involved and psychiatry will be reevaluating again today. Labs have been stable. Pressure is mildly elevated. Will increase on the metoprolol. Physical exam, the patient is currently resting comfortably. 08/25/16 10:08 08/25/16 10:51 08/25/16 18:55 Note: I have had a long discussion with Dr. Allison regarding the patient. The plan will be for her to be discharged home in [facility] will evaluate her tonight and begin follow-up with her. In the meantime, Adult Protective Services will be working on guardianship. The patient will be given prescriptions for Haldol and Cogentin.
[2016-08-25] MEDS ORDERED: METOPROLOL TARTRATE 50 MG TABLET PO SCH (10:15)
[2016-08-25 19:21] VITALS: BP 151/90
== END 2016-08-25 19:21 | disposition home or self-care (01) ==
LOC: ER 05:15
DX: E87.6 Hypokalemia (principal); I47.1 Supraventricular tachycardia; F20.9 Schizophrenia, unspecified; F29 Unspecified psychosis not due to a substance or known physiological condition; I95.9 Hypotension, unspecified; E11.9 Type 2 diabetes mellitus without complications; Z78.1 Physical restraint status
CPT/HCPCS: 93005; 96376; 99291; 96372; 51702; 96374; 96375; 36415; 84439; 82553; 80307 ×4; 82550; 83735; 84443; 85025; 80053; 81001; 84484; 84481; 93010; J0515 ×4; J1630 ×3; J3490 ×7; J2060 ×2; J3486; J7030; J0153

== ENCOUNTER 2016-08-27 04:17 | Emergency (ER) | payer OTHER, MEDICAID ==
[2016-08-27 05:09] LABS: ABSOLUTE BASOPHILS # (AUTO) 0.1 10^3/uL (0.0-0.2); ABSOLUTE EOSINOPHILS # (AUTO) 0.1 10^3/uL (0.0-0.6); ABSOLUTE MONOCYTES (AUTO) 0.6 10^3/uL (0.1-1.4); ABSOLUTE NEUT (AUTO) 3.7 10^3/uL (1.7-8.2); BASOPHILS % (AUTO) 0.9 % (0-2); EOSINOPHILS % (AUTO) 2.1 % (0-6); HEMATOCRIT 40.1 % (36.0-47.0); HEMOGLOBIN 13.7 g/dL (12.0-15.5); MEAN CORPUSCULAR HEMOGLOBIN 33.1 pg (27.0-33.4); MEAN CORPUSCULAR HGB CONC 34.1 g/dL (32.0-36.0); MEAN CORPUSCULAR VOLUME 97 fl (80-97); MONOCYTES % (AUTO) 9.6 % (3-13); RED BLOOD COUNT 4.14 10^6/uL (3.72-5.28); RED CELL DISTRIBUTION WIDTH 13.2 % (11.5-14.0); SEGMENTED NEUTROPHILS % (AUTO) 56.4 % (42-78); WHITE BLOOD COUNT 6.5 10^3/uL (4.0-10.5)
--- NOTE | 2016-08-27 05:25 | ER Document Report ---
ED General - General Chief Complaint: Psych Problem Stated Complaint: IVC/WITH PAPERS Time Seen by Provider: 08/27/16 04:51 Cannot obtain history due to: Uncooperative Notes: Patient is a 51-year-old woman well-known to this emergency department just discharged less than 48 hours ago after being in the emergency department for almost a week for erratic behavior, hallucinations, screaming at staff in the ED for the majority of her stay who again presents today on involuntary commitment papers. Apparently she was acting erratically at a bus stop, police were contacted and place her on IVC paperwork and return to the emergency department. Patient at time of arrival will not speak to me. She is resting quietly in bed initially pretending that she is not awake but easily wakes to sternal rub. No history can be obtained secondary to lack of cooperation. TRAVEL OUTSIDE OF THE [place] IN LAST 30 DAYS: No - Related Data Allergies/Adverse Reactions: STEROID Allergy (Uncoded 08/19/16 11:38) Past Medical History - General Information source: Emergency Med Personnel - Social History Smoking Status: Unknown if Ever Smoked Chew tobacco use (# tins/day): No Frequency of alcohol use: None Drug Abuse: None Family History: Other - Unobtainable due to altered mental status Patient has suicidal ideation: No Patient has homicidal ideation: No - Past Medical History Cardiac Medical History: Reports: Hx Hypertension Neurological Medical History: Reports: Hx Seizures Endocrine Medical History: Reports: Hx Diabetes Mellitus Type 2. Denies: Hx Diabetes Mellitus Type 1 Renal/ Medical History: Denies: Hx Peritoneal Dialysis Psychiatric Medical History: Reports: Hx Bipolar Disorder, Hx Depression, Hx Schizophrenia Past Surgical History: Reports: Other - Median sternotomy secondary to murmur noted at health department at age 8 - Immunizations Hx Diphtheria, Pertussis, Tetanus Vaccination: Yes Review of Systems - Review of Systems -: Yes ROS unobtainable due to patient's medical condition Physical Exam - Vital signs Vitals: Temp Pulse Resp BP Pulse Ox 98.3 F 79 18 146/71 H 96 08/27/16 04:23 08/27/16 04:23 08/27/16 04:23 08/27/16 04:23 08/27/16 04:23 Interpretation: Normal Notes: PHYSICAL EXAMINATION: GENERAL: Resting calmly in the bed, no distress HEAD: Atraumatic, normocephalic. EYES: Pupils equal round and reactive to light, extraocular movements intact, sclera anicteric, conjunctiva are normal. ENT: nares patent, oropharynx clear without exudates. Moist mucous membranes. NECK: Normal range of motion, supple without lymphadenopathy LUNGS: Breath sounds clear to auscultation bilaterally and equal. No wheezes rales or rhonchi. HEART: Regular rate and rhythm without murmurs ABDOMEN: Soft, nontender, normoactive bowel sounds. No guarding, no rebound. No masses appreciated. EXTREMITIES: Normal range of motion, no pitting or edema. No cyanosis. NEUROLOGICAL: No focal neurological deficits. Moves all extremities spontaneously PSYCH: Poor eye contact, refuses to answer questions SKIN: Warm, Dry, normal turgor, no rashes or lesions noted. Course - Re-evaluation Re-evalutation: 08/27/16 05:24 Patient again presents on involuntary commitment paperwork for erratic behavior in the community. Patient refuses to speak to me at time of arrival. She does not appear in any distress, vitals within normal limits. Routine psych screening labs will be obtained and psychiatry will be consulted for consultation. She is medically cleared for their evaluation - Vital Signs Vital signs: Temp Pulse Resp BP Pulse Ox 98.3 F 79 16 146/71 H 100 08/27/16 04:23 08/27/16 04:23 08/27/16 05:00 08/27/16 04:23 08/27/16 05:00 - Laboratory Result Diagrams: 08/27/16 04:55 08/27/16 04:55 Discharge - Discharge Clinical Impression: Schizophrenia Qualifiers: Schizophrenia type: unspecified Qualified Code(s): F20.9 - Schizophrenia, unspecified Psychosis Qualifiers: Psychosis type: unspecified psychosis type Qualified Code(s): F29 - Unspecified psychosis not due to a substance or known physiological condition Condition: Fair Disposition: PSYCH HOSP/UNIT
[2016-08-27 05:31] LABS: ALANINE AMINOTRANSFERASE 26 U/L (9-52); ALBUMIN 3.7 g/dL (3.5-5.0); ALKALINE PHOSPHATASE 87 U/L (38-126); ANION GAP 9 (5-19); ASPARTATE AMINO TRANSFERASE 28 U/L (14-36); BILIRUBIN,DIRECT 0.3 mg/dL (0.0-0.4); BILIRUBIN,TOTAL 0.4 mg/dL (0.2-1.3); BLOOD UREA NITROGEN 21 mg/dL (7-20); CALCIUM 9.3 mg/dL (8.4-10.2); CARBON DIOXIDE 31 mmol/L (22-30); CHLORIDE 101 mmol/L (98-107); CREATININE RESULT 1.03 mg/dL (0.52-1.25); GLUCOSE 104 mg/dL (75-110); POTASSIUM 3.3 mmol/L (3.6-5.0); SODIUM 141.3 mmol/L (137-145); TOTAL PROTEIN 6.9 g/dL (6.3-8.2)
[2016-08-27 05:35] LABS: ALCOHOL < 10 mg/dL (NONE DETECTED)
[2016-08-27 12:32] LABS: APPEARANCE,URINE CLEAR; BILIRUBIN,URINE NEGATIVE (NEGATIVE); GLUCOSE, URINE NEGATIVE (NEGATIVE); KETONES,URINE NEGATIVE (NEGATIVE); LEUKOCYTE ESTERASE,URINE NEGATIVE (NEGATIVE); NITRITE,URINE NEGATIVE (NEGATIVE); PROTEIN,URINE NEGATIVE (NEGATIVE); URINE SPECIFIC GRAVITY 1.018; UROBILINOGEN,URINE NEGATIVE mg/dL (<2.0)
[2016-08-27 12:40] LABS: RBC,URINE 0-1 /HPF; WBC,URINE 0-1 /HPF
[2016-08-27 12:41] LABS: BACTERIA,URINE TRACE /HPF
[2016-08-27 13:00] LABS: URINE BARBITURATES SCREEN NEGATIVE; URINE METHADONE SCREEN NEGATIVE; URINE OPIATES LOW NEGATIVE; URINE PHENCYCLIDINE SCREEN NEGATIVE
--- NOTE | 2016-08-27 18:59 | ER Document Report ---
Doctor's Note Notes: 08/27/16 18:58 Patient rounded upon seen and evaluated the bedside no psychiatric note placed on her left arm. Patient with history of multiple encounters although I do not know her for erratic behavior and was placed on IVC. Patient is sleeping aroused with very and asked me to leave the room. Review has shown her to be medically stable. We are waiting for the behavioral health team to make recommendations. Behavior and intimidation technique. She was unable to main maintain a clear thought process or tell me how she got here and then will intermittently
[2016-08-28] MEDS ORDERED: HALOPERIDOL LACTATE INJ 5 MG/1 ML VIAL IM ONE (03:12)
[2016-08-28] MEDS ORDERED: LORAZEPAM INJ 2 MG/1 ML VIAL IM ONE (03:12)
[2016-08-28] MEDS ORDERED: DIPHENHYDRAMINE HCL 50 MG/ML VIAL IM ONE (03:12)
[2016-08-28] MEDS ORDERED: LORAZEPAM INJ 2 MG/1 ML VIAL ONE (03:13)
[2016-08-28] MEDS ORDERED: DIPHENHYDRAMINE HCL 50 MG/ML VIAL ONE (03:13)
[2016-08-28] MEDS ORDERED: HALOPERIDOL LACTATE INJ 5 MG/1 ML VIAL ONE (03:13)
--- NOTE | 2016-08-28 09:24 | ER Document Report ---
Doctor's Note Notes: 08/28/16 09:24 Lab work vital signs have been reviewed. At this time patient is currently stable with no overnight events requiring no intervention at this time. Patient stable for transfer or other disposition
--- NOTE | 2016-08-28 14:59 | ER Document Report ---
ED Psych Disorder / Suicide - General TRAVEL OUTSIDE OF THE [place] IN LAST 30 DAYS: No <JILL LEYVA - Last Filed: 08/28/16 14:50> - HPI Normal mood: Yes Associated symptoms: Manic - baseline Similar symptoms previously: Yes - pt has a long docummented history Recently seen / treated by doctor: Yes - [facility] <AROLDOALEKSEY LEONBETH - Last Filed: 08/30/16 13:30> - General Chief Complaint: Psych Problem Stated Complaint: IVC/WITH PAPERS Time Seen by Provider: 08/27/16 04:51 - HPI Notes: Patient is a 51-year-old woman well-known to this emergency department just discharged less than 48 hours ago after being in the emergency department for almost a week for erratic behavior, hallucinations, screaming at staff in the ED for the majority of her stay who again presents today on involuntary commitment papers. Apparently she was acting erratically at a bus stop, police were contacted and place her on IVC paperwork and return to the emergency department. Patient at time of arrival will not speak to me. She is resting quietly in bed initially pretending that she is not awake but easily wakes to sternal rub. No history can be obtained secondary to lack of cooperation. Clinician was told patient was ready to talk. During the room clinician noted patient had removed all of her hair on her head. Patient states that she used Mai. Clinician asked if patient liked having no hair, and states that she does not like the rough prickly feel. Patient to discuss how she normally likes to wear both in her hair and now she cannot because she took all her hair off. Patient states she does not know why she is at [facility] stating I was just trying to go visit my sister. APS psychosocial rehabilitation counselor, Doreen, came and spoke with Wes. Patient is alert and orientated to person, place, time and circumstance. Mood is euthymic with congruent affect. Patient denies suicidal and homicidal ideation. Patient's baseline include some delusions of religiosity, hallucinations, and behavorial outbursts. Currently, patient is calm and done verbalizing or demonstrating acute psychosis. Thought process is currently organized and linear. Conversational speech was within normal rate tone and prosody. Eye contact was well-maintained. Intellectual abilities appear to be within average range. Attention and concentration are fair. Insight, judgment , impulse control are historically poor. Diagnosis: 295.90 (F20.9) Schizophrenia Impression/Plan: Patient is recommended to continue under IVC. Patient will be reevaluated. Dr. Allison was consulted on the care and management of this patient; attending physician is in agreement with recommendations and disposition. Clinician conducted checking with patient 08/28/2016 Patient is observed sitting in the bed with her sheet covering her. Patient is also observed with a slight shake in her body. Patient does not respond to clinician saying hello. When asked if patient was feeling okay patient lifted her she asking who was there, when patient saw clinician she stated "I do not want to talk to you today." And then covered her head back up. Clinician spoke with Dalia, integrated building construction ironworker assigned to advanced case; [phone]. She disclosed that the patient could get a ride from them when discharged however at this time she is unsure if the patient is allowed to return to her home. Clinician received phone call from Niharika Elder emergency duty psychosocial rehabilitation counselor. She disclosed that she was told Wes was unable to return to her home. At this time it is unclear if the patient has somewhere to live. Aura pita, [phone], disclosed that Wes is unable to return to her home or the property. Wes arrived Tuesday evening was unable to get into her residence and kicked in the door. (JILL LEYVA) 08/29/2016 Clinician conducted brief check in with patient who is a 51 year old female under IVC. Patient does present calmer, then initial documentation. Patient is able to engage in conversation. Currently, patient is reportedly on [place] Bed Delay. Patient states she has a home and can return. Note, there was reportedly an incident which occurred at the residence, which is reportedly preventing her from returning (susan has threatened to have her arrested). Will attempt to gather additional information. 08/30/2016 Contacted Dalia from [facility] who states she is proving services with the patient and is willing to transport that patient upon discharge. Dalia states she will contact patient's SW, Doreen, to inquire about next steps in regards to placement/residence. [place] [facility]PS Doreen Coffee and discussed plan of care. APS states she does not understand how with an affidavit the patient can be discharged. Prompted worker to contact Dr. Allison directly. Returned contact to [facility] and spoke with Dalia again. Patient is permitted to return to her home, as previously suggested to this worker, and has not yet been served an eviction notice. Worker states she will present around 115 to pick the patient up and review possible discharge places. Patient today is calm and cooperative. Patient is bald and has enjoyed going in the bathroom to look in the mirror. Patient is observed talking and smiling with no one in the room. Patient engages in conversation and states she is doing well. Patient has no other complaints at this time. Per nursing staff, she has been cooperative and compliant with medications administration. Patient is A&O. Patient is manic which should be noted is baseline for her with smiling affect. Patient denies suicidal/homicidal ideations, intent, plan, or means. Patient denies A/V H; however, presents as responding to internal stimuli. Note, this is also baseline for this patient. Thought processes were tangential, but she was able to remain on topic and track during conversation. Conversational speech was WNL for this patient. Intellectual abilities were estimated within lower average range. Attention and focus were fair. Insight, judgment, and impulse control were fair. 295.90 (F20.9) Schizophrenia Impression/Plan: Patient is psychiatrically cleared and recommended for rescind IVC. Patient's [facility] worker, Dalia is bedside and will assist the patient home. Patient's overall presentation is congruent with her baseline functioning , which as noted above, includes psychosis and alba. Patient denies SI.HI. Patient has been compliant with her medication administration and is able to offer some insight into continuing her medications. (KEARA KENDRICK) - Related Data Allergies/Adverse Reactions: STEROID Allergy (Uncoded 08/19/16 11:38) Home Medications: Current Home Medications Benztropine Mesylate [Benztropine Mesylate 2 mg Tablet] 2 mg PO BID 08/28/16 [ History] Haloperidol Decanoate [Haldol Decan (Monthly) 100 mg/ml Inj 1 ml] 100 mg IM [id number] 08/28/16 [History] Haloperidol [Haldol 5 mg Tablet] 5 mg PO QAM 08/28/16 [History] Haloperidol [Haldol 5 mg Tablet] 10 mg PO QHS 08/28/16 [History] Hydrochlorothiazide 25 mg PO DAILY 08/28/16 [History] Losartan Potassium [Cozaar 100 mg Tablet] 100 mg PO DAILY 08/28/16 [History] Metformin HCl [Glucophage] 500 mg PO BIDBS 08/28/16 [History] Potassium Chloride [K-Tab ER] 20 meq PO DAILY 08/28/16 [History] Propranolol HCl [Inderal 40 mg Tablet] 20 mg PO Q8 08/28/16 [History] Trazodone HCl [Desyrel 50 mg Tablet] 50 mg PO HSP PRN 08/28/16 [History] Past Medical History - General Information source: Emergency Med Personnel - Social History Smoking Status: Unknown if Ever Smoked Chew tobacco use (# tins/day): No Frequency of alcohol use: None Drug Abuse: None Family History: Other - Unobtainable due to altered mental status Patient has suicidal ideation: No Patient has homicidal ideation: No - Past Medical History Cardiac Medical History: Reports: Hx Hypertension Neurological Medical History: Reports: Hx Seizures Endocrine Medical History: Reports: Hx Diabetes Mellitus Type 2. Denies: Hx Diabetes Mellitus Type 1 Renal/ Medical History: Denies: Hx Peritoneal Dialysis Psychiatric Medical History: Reports: Hx Bipolar Disorder, Hx Depression, Hx Schizophrenia Past Surgical History: Reports: Other - Median sternotomy secondary to murmur noted at health department at age 8 - Immunizations Hx Diphtheria, Pertussis, Tetanus Vaccination: Yes <JILL LEYVA - Last Filed: 08/28/16 14:50> - General Information source: Patient, OM Records <KEARA KENDRICK - Last Filed: 08/30/16 13:30> Course - Laboratory Result Diagrams: 08/27/16 04:55 08/27/16 04:55 <JILL LEYVA - Last Filed: 08/28/16 14:50> - Laboratory Result Diagrams: 08/27/16 04:55 08/27/16 04:55 <KEARA KENDRICK - Last Filed: 08/30/16 13:30> - Vital Signs Vital signs: Temp Pulse Resp BP Pulse Ox 98.7 F 77 20 139/84 H 98 08/29/16 12:00 08/30/16 05:01 08/30/16 05:01 08/30/16 05:01 08/30/16 05:01 - Laboratory Laboratory results interpreted by me: 08/27/16 04:55 Potassium 3.3 L Carbon Dioxide 31 H BUN 21 H Est GFR (Non-Af Amer) 56 L Salicylates < 1.0 L Acetaminophen < 10 L Discharge <JILL LEYVA - Last Filed: 08/28/16 14:50> <KEARA KENDRICK - Last Filed: 08/30/16 13:30> - Discharge Clinical Impression: Schizophrenia Qualifiers: Schizophrenia type: unspecified Qualified Code(s): F20.9 - Schizophrenia, unspecified Psychosis Qualifiers: Psychosis type: unspecified psychosis type Qualified Code(s): F29 - Unspecified psychosis not due to a substance or known physiological condition Condition: Good Disposition: HOME, SELF-CARE Additional Instructions: Schizophrenia Schizophrenia is a chemical disorder that affects how the brain functions. The exact cause is unknown, but it tends to run in families. It is NOT caused by emotional trauma. Schizophrenia causes disordered thinking, including unusual beliefs and inability to "process" happenings around the patient. Patients with schizophrenia benefit greatly from medicine. These medicines are called antipsychotics. Never stop the medicine without the doctor 's approval. Counselling may help the patient deal with his disease. Schizophrenics require a very ordered environment. Stresses and sudden changes may bring out symptoms. Drugs and alcohol abuse may become problems. Contact the counsellor or crisis line if there are thoughts of suicide or of harming others, or if you become aware of unusual thoughts or beliefs Please take your medications as prescribed. Please engage with your provider to continue services, to include [facility]. Please continue to work with your SW, Ms. Logan to identify services. Please return if your symptoms worsen. Referrals: [facility] [Provider Group] - 08/30/16 (They have presented bedside to assist you home and with your medications.)
[2016-08-28] MEDS: BENZTROPINE MESYLATE 1 MG TABLET PO SCH (15:27)
[2016-08-28] MEDS: HALOPERIDOL 5 MG TABLET PO SCH ×2 (15:28→23:05)
[2016-08-28] MEDS: ARIPIPRAZOLE 5 MG TABLET PO SCH (15:29)
--- NOTE | 2016-08-28 17:38 | EKG REPORT ---
SEVERITY:- ABNORMAL ECG - SINUS RHYTHM LEFT ATRIAL ABNORMALITY LEFT VENTRICULAR HYPERTROPHY NONSPECIFIC T CHANGES : Confirmed by: Nisha Fitzgerald 28-Aug-2016 17:36:57
--- NOTE | 2016-08-29 09:21 | ER Document Report ---
Doctor's Note Notes: 08/29/16 09:21 Lab work vital signs have been reviewed. At this time patient is currently stable with no overnight events requiring no intervention at this time. Patient stable for transfer or other disposition
[2016-08-29] MEDS: ARIPIPRAZOLE 5 MG TABLET PO SCH (11:00)
[2016-08-29] MEDS: HALOPERIDOL 5 MG TABLET PO SCH ×2 (11:00→22:09)
[2016-08-29] MEDS: BENZTROPINE MESYLATE 1 MG TABLET PO SCH (11:00)
--- NOTE | 2016-08-30 10:23 | ER Document Report ---
Doctor's Note Notes: 08/30/16 10:22 Patient sleeping comfortably on stretcher with blanket over her head, she is easily awakened, denies having any complaints at present time, she is answering questions appropriately and is requesting some ice water to drink, mental health team has followed an affidavit with [facility] Services for guardianship of patient, her current living situation and whether she can return to her home is questionable at this point in time, otherwise patient is medically stable for transfer or discharge Discharge - Discharge Clinical Impression: Schizophrenia Qualifiers: Schizophrenia type: unspecified Qualified Code(s): F20.9 - Schizophrenia, unspecified Psychosis Qualifiers: Psychosis type: unspecified psychosis type Qualified Code(s): F29 - Unspecified psychosis not due to a substance or known physiological condition Condition: Good Disposition: HOME, SELF-CARE Additional Instructions: Schizophrenia Schizophrenia is a chemical disorder that affects how the brain functions. The exact cause is unknown, but it tends to run in families. It is NOT caused by emotional trauma. Schizophrenia causes disordered thinking, including unusual beliefs and inability to "process" happenings around the patient. Patients with schizophrenia benefit greatly from medicine. These medicines are called antipsychotics. Never stop the medicine without the doctor 's approval. Counselling may help the patient deal with his disease. Schizophrenics require a very ordered environment. Stresses and sudden changes may bring out symptoms. Drugs and alcohol abuse may become problems. Contact the counsellor or crisis line if there are thoughts of suicide or of harming others, or if you become aware of unusual thoughts or beliefs Please take your medications as prescribed. Please engage with your provider to continue services, to include [facility]. Please continue to work with your SW, Ms. Logan to identify services. Please return if your symptoms worsen. Prescriptions: Aripiprazole [Abilify 5 mg Tablet] 5 mg PO DAILY #15 tablet Benztropine Mesylate [Cogentin 1 mg Tablet] 2 tab PO DAILY #30 tab Haloperidol [Haldol 5 mg Tablet] 10 mg PO BID #30 tablet Referrals: [facility] [Provider Group] - 08/30/16 (They have presented bedside to assist you home and with your medications.)
[2016-08-30] MEDS: HALOPERIDOL 5 MG TABLET PO SCH (11:15)
[2016-08-30] MEDS: ARIPIPRAZOLE 5 MG TABLET PO SCH (11:15)
[2016-08-30] MEDS: BENZTROPINE MESYLATE 1 MG TABLET PO SCH (11:15)
[2016-08-30] MEDS ORDERED: BENZTROPINE MESYLATE 1 MG TABLET PO ONE (12:00)
[2016-08-30] MEDS ORDERED: HALOPERIDOL 5 MG TABLET PO ONE (12:00)
[2016-08-30] MEDS ORDERED: ARIPIPRAZOLE 5 MG TABLET PO ONE (12:00)
[2016-08-30 13:53] VITALS: BP 151/98
== END 2016-08-30 13:53 | disposition home or self-care (01) ==
LOC: ER 04:17
DX: F20.9 Schizophrenia, unspecified (principal); F29 Unspecified psychosis not due to a substance or known physiological condition; I10 Essential (primary) hypertension; E11.9 Type 2 diabetes mellitus without complications
CPT/HCPCS: 93005; 99284; 96372; 96374; 96375; 36415; 80307 ×4; 85025; 80053; 81001; 93010; J1200; J1630; J2060

== ENCOUNTER 2016-10-09 22:35 | Emergency (ER) | payer MEDICAID, OTHER ==
--- NOTE | 2016-10-10 00:02 | ER Document Report ---
ED General - General Chief Complaint: Psych Problem Stated Complaint: MEDICATION REFILL Time Seen by Provider: 10/09/16 23:56 Notes: Patient is a 51-year-old female well-known to this emergency department who presents with request for medication refills. Patient states she has been out of all of her medicines for the past 4 days as she has not been able to see her primary care doctor.. She denies any acute concerns or additional complaints. TRAVEL OUTSIDE OF THE [place] IN LAST 30 DAYS: No - Related Data Allergies/Adverse Reactions: STEROID Allergy (Uncoded 10/09/16 22:45) Past Medical History - General Information source: Patient - Social History Smoking Status: Never Smoker Frequency of alcohol use: None Drug Abuse: None Family History: Reviewed & Not Pertinent, Other - Unobtainable due to altered mental status - Past Medical History Cardiac Medical History: Reports: Hx Hypertension Neurological Medical History: Reports: Hx Seizures Endocrine Medical History: Reports: Hx Diabetes Mellitus Type 2. Denies: Hx Diabetes Mellitus Type 1 Renal/ Medical History: Denies: Hx Peritoneal Dialysis Psychiatric Medical History: Reports: Hx Bipolar Disorder, Hx Depression, Hx Schizophrenia Past Surgical History: Reports: Other - Median sternotomy secondary to murmur noted at health department at age 8 - Immunizations Hx Diphtheria, Pertussis, Tetanus Vaccination: Yes Review of Systems - Review of Systems Notes: Constitutional: Negative for fever. Cardiovascular: Negative for chest pain. Respiratory: Negative for shortness of breath. Gastrointestinal: Negative for vomiting Musculoskeletal: Negative for back pain. Skin: Negative for rash. Neurological: Negative for weakness or numbness. 10 point ROS negative except as marked above and in HPI. Physical Exam - Vital signs Vitals: Temp Pulse Resp BP Pulse Ox 98.7 F 88 26 H 190/110 H 97 10/09/16 22:49 10/09/16 22:49 10/09/16 22:49 10/09/16 22:49 10/09/16 22:49 Refer rate is documented is not accurate at time of my my assessment. Patient' s respiratory rate is 18 even and unlabored Notes: PHYSICAL EXAMINATION: GENERAL: Well-appearing, well-nourished and in no acute distress. HEAD: Atraumatic, normocephalic. EYES: sclera anicteric, conjunctiva are normal. ENT: Moist mucous membranes. NECK: Normal range of motion LUNGS: Normal work of breathing HEART: 2+ radial pulses bilaterally EXTREMITIES: no pitting or edema. No cyanosis. NEUROLOGICAL: No focal neurological deficits. Moves all extremities spontaneously and on command. PSYCH: Appropriate eye contact, psychiatrically much more stable than on any prior occasion which have assessed her SKIN: Warm, Dry, normal turgor, no rashes or lesions noted. Course - Re-evaluation Re-evalutation: 10/10/16 03:57 Patient presents requesting medication refills of multiple of her medicines which I am happy to complete. This is actually the most stable I have ever seen this patient and I have evaluated her on multiple occasions. There is no indication for an acute psychiatric evaluation laboratories or imaging. At this time will discharge with return precautions and follow-up recommendations. Verbal discharge instructions given a the bedside and opportunity for questions given. Medication warnings reviewed. Patient is in agreement with this plan and has verbalized understanding of return precautions and the need for primary care follow-up in the next 24-72 hours. - Vital Signs Vital signs: Temp Pulse Resp BP Pulse Ox 98.3 F 89 18 177/82 H 97 10/10/16 00:12 10/10/16 00:12 10/10/16 00:12 10/10/16 00:12 10/10/16 00:12 Discharge - Discharge Clinical Impression: Medication refill Condition: Good Disposition: HOME, SELF-CARE Additional Instructions: Please return to the emergency room immediately if you experience any concerning symptoms including high fevers, severe headache, chest pain, difficulty breathing, abdominal pain, slurred speech, numbness or weakness in your arms or legs, or any other symptom that concerns you. Prescriptions: Haloperidol [Haldol 5 mg Tablet] 5 mg PO QHS #30 tablet Trazodone HCl [Desyrel 50 mg Tablet] 50 mg PO QHS #30 tablet Hydrochlorothiazide 25 mg PO DAILY #30 tablet Losartan Potassium 100 mg PO DAILY #30 tablet Metformin HCl 500 mg PO BID #60 tablet
[2016-10-10 00:56] VITALS: BP 177/82
== END 2016-10-10 00:12 | disposition home or self-care (01) ==
LOC: ER 22:35
DX: Z76.0 Encounter for issue of repeat prescription (principal)
CPT/HCPCS: 99282

== ENCOUNTER 2016-10-11 18:55 | Emergency (ER) | payer OTHER ==
[2016-10-11] MEDS ORDERED: PROPRANOLOL HCL 20 MG TABLET PO ONE (19:32)
[2016-10-11] MEDS ORDERED: HYDROCHLOROTHIAZIDE 25 MG TABLET PO ONE (19:32)
[2016-10-11] MEDS ORDERED: LOSARTAN POTASSIUM 50 MG TABLET PO ONE (19:32)
[2016-10-11] MEDS ORDERED: TRAZODONE HCL 50 MG TABLET PO ONE (19:34)
--- NOTE | 2016-10-11 19:37 | ER Document Report ---
ED Psych Disorder / Suicide - General Stated Complaint: PSYCH EVALUATION Time Seen by Provider: 10/11/16 19:13 Notes: Patient is a 51-year-old female with a past medical history of schizophrenia that comes emergency department by EMS for chief complain of being found wandering around the [employer] parking lot in town for the past 2 days. Patient states she is not sure why she was wandering around. She states she is hungry. She states she has not taken any of her home medications. She denies any pain or complaints other than being hungry at this time. TRAVEL OUTSIDE OF THE [place] IN LAST 30 DAYS: No - Related Data Allergies/Adverse Reactions: STEROID Allergy (Uncoded 10/09/16 22:45) Past Medical History - General Information source: Patient - Social History Smoking Status: Never Smoker Frequency of alcohol use: None Drug Abuse: None Lives with: Family Family History: Reviewed & Not Pertinent, Other - Unobtainable due to altered mental status - Past Medical History Cardiac Medical History: Reports: Hx Hypertension Neurological Medical History: Reports: Hx Seizures Endocrine Medical History: Reports: Hx Diabetes Mellitus Type 2. Denies: Hx Diabetes Mellitus Type 1 Renal/ Medical History: Denies: Hx Peritoneal Dialysis Psychiatric Medical History: Reports: Hx Bipolar Disorder, Hx Depression, Hx Schizophrenia Past Surgical History: Reports: Other - Median sternotomy secondary to murmur noted at health department at age 8 - Immunizations Hx Diphtheria, Pertussis, Tetanus Vaccination: Yes Review of Systems - Review of Systems Constitutional: No symptoms reported EENT: No symptoms reported Cardiovascular: No symptoms reported Respiratory: No symptoms reported Gastrointestinal: No symptoms reported Genitourinary: No symptoms reported Female Genitourinary: No symptoms reported Musculoskeletal: No symptoms reported Skin: No symptoms reported Hematologic/Lymphatic: No symptoms reported Neurological/Psychological: See HPI Physical Exam - Vital signs Vitals: Temp Pulse Resp BP Pulse Ox 97.6 F 94 20 154/126 H 99 10/11/16 20:54 10/11/16 20:54 10/11/16 20:54 10/11/16 20:54 10/11/16 20:54 Interpretation: Normal - General General appearance: Appears well In distress: None - HEENT Head: Normocephalic, Atraumatic Eyes: Normal Pupils: PERRL - Respiratory Respiratory status: No respiratory distress Chest status: Nontender Breath sounds: Normal. No: Decreased air movement, Wheezing Chest palpation: Normal - Cardiovascular Rhythm: Regular. No: Tachycardia Heart sounds: Normal auscultation, S1 appreciated, S2 appreciated Murmur: No - Abdominal Inspection: Normal Distension: No distension Bowel sounds: Normal Tenderness: Nontender. No: Tender Organomegaly: No organomegaly - Back Back: Normal, Nontender - Extremities General upper extremity: Normal inspection, Nontender, Normal color, Normal ROM , Normal temperature General lower extremity: Normal inspection, Nontender, Normal color, Normal ROM , Normal temperature, Normal weight bearing. No: Tierney's sign - Neurological Neuro grossly intact: Yes Cognition: Normal Orientation: AAOx4 Rubin Coma Scale Eye Opening: Spontaneous [place] Coma Scale Verbal: Oriented Rubin Coma Scale Motor: Obeys Commands [place] Coma Scale Total: 15 Speech: Normal Motor strength normal: LUE, RUE, LLE, RLE Sensory: Normal - Psychological Associated symptoms: No: Normal mood - Patient occassionally suddenly laughing loudly and inappropriately, but she is directable, attentive, makes eye contact , and otherwise is calm. Not responding to internal stimuli., Aggressive, Agitated, Angry, Anxious, Auditory hallucinations, Combative, Confused - Skin Skin Temperature: Warm Skin Moisture: Dry Skin Color: Normal Course - Re-evaluation Re-evalutation: Patient presented to the ED for erratic behavior. Patient is oriented to person , place, and even a month. She is calm, cooperative, and not aggressive. She is not making threats. Patient is hypertensive, she has not been compliant with home medications, giving her her blood pressure medications, her evening trazodone, performing workup. She tells me her sponsor is Ms. Corrales at [phone]. 10/11/16 According to records she is receiving monthly haldol in the middle of the month. Discussed with Dr. Patino. Patient is calm, cooperative, and there is no evidence of her being a danger to herself or others. She is not acting with psychosis. No indication for IVC. Will attempt to find patient a way home. 10/11/16 20:11 Spoke with Ms. Corrales, she gives me patient's sister's contact at [phone], recommends I call her and get the number for Yuliana Luis, the home at [address] [place] [address] where patient is staying. 10/11/16 23:18 Attempted a 3rd time and was then able to speak with Shannon (sister). She states she is in [place]. She gave me the number [phone] for Yuliana Luis, the individual at the patient's current home. I called that number, am not getting any answer, voicemail is full. 10/12/16 05:26 Patient has remained comfortable or sleeping on re-evaluations. Attempted again to reach Yuliana, but no answer with full voicemail. 10/12/16 06:41 Patient slept well. She states she wants to go home. I am still trying to confirm place and a ride. She states she was just hanging out at [place] and they told her she had to come with EMS or they would call the police. She denies SI or HI. She denies hallucinations. She is directable and calm. Stable for discharge. - Vital Signs Vital signs: Temp Pulse Resp BP Pulse Ox 98.6 F 77 16 136/71 H 93 10/12/16 00:01 10/12/16 04:50 10/12/16 04:50 10/12/16 04:50 10/12/16 04:50 - Laboratory Result Diagrams: 10/11/16 20:05 10/11/16 20:05 Laboratory results interpreted by me: 10/11/16 10/11/16 10/11/16 20:05 20:05 20:45 MCH 34.0 H RDW 14.9 H Potassium 3.3 L Total Protein 8.3 H Urine Ketones TRACE H Salicylates < 1.0 L Acetaminophen < 10 L Discharge - Discharge Clinical Impression: Behavior concern in adult Schizophrenia Qualifiers: Schizophrenia type: unspecified Qualified Code(s): F20.9 - Schizophrenia, unspecified Condition: Stable Disposition: HOME, SELF-CARE Additional Instructions: Resume and take your daily medications as prescribed. Follow-up with your psychiatrist within the next few days. Return to emergency department if something is not right.
[2016-10-11] MEDS ORDERED: HALOPERIDOL 5 MG TABLET PO ONE (20:12)
[2016-10-11 20:16] LABS: ABSOLUTE EOSINOPHILS # (AUTO) 0.1 10^3/uL (0.0-0.6); ABSOLUTE LYMPHOCYTES (AUTO) 1.8 10^3/uL (0.5-4.7); ABSOLUTE MONOCYTES (AUTO) 0.5 10^3/uL (0.1-1.4); ABSOLUTE NEUT (AUTO) 3.5 10^3/uL (1.7-8.2); BASOPHILS % (AUTO) 0.8 % (0-2); EOSINOPHILS % (AUTO) 1.4 % (0-6); HEMATOCRIT 40.5 % (36.0-47.0); HEMOGLOBIN 14.2 g/dL (12.0-15.5); HGB HCT DIFFERENCE 2.1; LYMPHOCYTES % (AUTO) 29.3 % (13-45); MEAN CORPUSCULAR HGB CONC 35.1 g/dL (32.0-36.0); MEAN CORPUSCULAR VOLUME 97 fl (80-97); MONOCYTES % (AUTO) 9.1 % (3-13); RED BLOOD COUNT 4.18 10^6/uL (3.72-5.28); RED CELL DISTRIBUTION WIDTH 14.9 % (11.5-14.0); SEGMENTED NEUTROPHILS % (AUTO) 59.4 % (42-78)
[2016-10-11 20:29] LABS: ALANINE AMINOTRANSFERASE 29 U/L (9-52); ALBUMIN 4.6 g/dL (3.5-5.0); ALKALINE PHOSPHATASE 93 U/L (38-126); ANION GAP 11 (5-19); ASPARTATE AMINO TRANSFERASE 32 U/L (14-36); BILIRUBIN,DIRECT 0.4 mg/dL (0.0-0.4); BLOOD UREA NITROGEN 10 mg/dL (7-20); CALCIUM 9.4 mg/dL (8.4-10.2); CARBON DIOXIDE 25 mmol/L (22-30); CHLORIDE 104 mmol/L (98-107); CREATININE RESULT 0.72 mg/dL (0.52-1.25); GLUCOSE 98 mg/dL (75-110); POTASSIUM 3.3 mmol/L (3.6-5.0); SODIUM 140.3 mmol/L (137-145); TOTAL PROTEIN 8.3 g/dL (6.3-8.2)
[2016-10-11 20:30] LABS: ALCOHOL < 10 mg/dL (NONE DETECTED)
[2016-10-11] MEDS ORDERED: POTASSIUM CHLORIDE 10 MEQ TABLET.SA PO ONE (20:31)
[2016-10-11 21:25] LABS: APPEARANCE,URINE CLEAR; BILIRUBIN,URINE NEGATIVE (NEGATIVE); GLUCOSE, URINE NEGATIVE (NEGATIVE); KETONES,URINE TRACE mg/dL (NEGATIVE); LEUKOCYTE ESTERASE,URINE NEGATIVE (NEGATIVE); NITRITE,URINE NEGATIVE (NEGATIVE); PROTEIN,URINE NEGATIVE (NEGATIVE); URINE SPECIFIC GRAVITY 1.006; UROBILINOGEN,URINE NEGATIVE mg/dL (<2.0)
[2016-10-11 21:43] LABS: URINE BARBITURATES SCREEN NEGATIVE; URINE METHADONE SCREEN NEGATIVE; URINE OPIATES LOW NEGATIVE; URINE PHENCYCLIDINE SCREEN NEGATIVE
--- NOTE | 2016-10-11 22:15 | EKG REPORT ---
SEVERITY:- ABNORMAL ECG - SINUS RHYTHM LEFT ATRIAL ABNORMALITY LEFT AXIS DEVIATION LEFT VENTRICULAR HYPERTROPHY : Confirmed by: Nisha Fitzgerald 11-Oct-2016 22:15:17
[2016-10-12 11:44] VITALS: BP 148/86
== END 2016-10-12 10:25 | disposition home or self-care (01) ==
LOC: ER 18:55
DX: F20.9 Schizophrenia, unspecified (principal)
CPT/HCPCS: 93005; 99285; 36415; 80307 ×4; 85025; 80053; 81001; 93010; J3490 ×4

== ENCOUNTER 2016-10-13 13:56 | Emergency (ER) | payer MEDICAID, OTHER ==
--- NOTE | 2016-10-13 14:22 | ER Document Report ---
ED Psych Disorder / Suicide - General Mode of Arrival: Ambulatory Information source: Patient TRAVEL OUTSIDE OF THE [place] IN LAST 30 DAYS: No <PEBBLES LUCAS - Last Filed: 10/13/16 21:05> <BRIEN VALENTE - Last Filed: 10/13/16 23:53> - General Chief Complaint: Psych Problem Stated Complaint: IVC Notes: Patient is a 51 year old female that presents to the emergency department today secondary to being intoxicated. Patient is uncooperative during the exam and appears intoxicated so history is limited. (PEBBLES LUCAS) - Related Data Allergies/Adverse Reactions: STEROID Allergy (Uncoded 10/09/16 22:45) Past Medical History - General Information source: [facility] Records - Social History Smoking Status: Current Some Day Smoker Cigarette use (# per day): Yes Frequency of alcohol use: Heavy Drug Abuse: None Lives with: Family Family History: Reviewed & Not Pertinent, Other - Unobtainable due to altered mental status - Past Medical History Cardiac Medical History: Reports: Hx Hypertension Neurological Medical History: Reports: Hx Seizures Endocrine Medical History: Reports: Hx Diabetes Mellitus Type 2 Psychiatric Medical History: Reports: Hx Bipolar Disorder, Hx Depression, Hx Schizophrenia Past Surgical History: Reports: Other - Median sternotomy secondary to murmur noted at health department at age 8 - Immunizations Hx Diphtheria, Pertussis, Tetanus Vaccination: Yes <PEBBLES LUCAS - Last Filed: 10/13/16 21:05> Review of Systems - Review of Systems Constitutional: See HPI, Other - intoxicated, out of meds EENT: No symptoms reported Cardiovascular: No symptoms reported Respiratory: No symptoms reported Gastrointestinal: No symptoms reported Genitourinary: No symptoms reported Female Genitourinary: No symptoms reported Musculoskeletal: No symptoms reported Skin: No symptoms reported Hematologic/Lymphatic: No symptoms reported Neurological/Psychological: No symptoms reported -: Yes All other systems reviewed and negative <PEBBLES LUCAS - Last Filed: 10/13/16 21:05> Physical Exam <PEBBLES LUCAS - Last Filed: 10/13/16 21:05> <BRIEN VALENTE - Last Filed: 10/13/16 23:53> - Vital signs Vitals: Temp Pulse Resp BP Pulse Ox 97.6 F 92 24 H 180/96 H 98 10/13/16 14:00 10/13/16 14:00 10/13/16 14:00 10/13/16 14:00 10/13/16 14:00 - Notes Notes: Physical Exam: General: Alert. Smells of EtOH. HEENT: Normocephalic. Atraumatic. PERRLA. Extraocular movements intact. Oropharynx clear. Neck: Supple. Respiratory: No respiratory distress. Abdominal: Normal Inspection. No distension. Extremities: Moves all four extremities. Neurological: AAOx4. Normal cognition. Psychological: Appears intoxicated. Denies homicidal or suicidal ideation. Skin: Warm. Dry. Normal color. (PEBBLES LUCAS) Course - Laboratory Result Diagrams: 10/13/16 16:00 10/13/16 16:00 <PEBBLES LUCAS - Last Filed: 10/13/16 21:05> - Laboratory Result Diagrams: 10/13/16 16:00 10/13/16 16:00 <BRIEN VALENTE - Last Filed: 10/13/16 23:53> - Re-evaluation Re-evalutation: 10/13/16 17:40 Patient's social media intern is here, states patient told her that she lost her prescriptions. first calender worker would like the prescriptions to be rewritten. ( PEBBLES LUCAS) 10/13/16 Patient comes in intoxicated. She is not suicidal or homicidal. Patient was seen by mental health. Patient will be discharged with her social media intern. Prescriptions have been rewritten and also requested to be put in blister packs. Stable for discharge. Follow-up with outpatient resources. Of note, patient has also been given a dose of Haldol decanoate as she has not received a dose since August. 100 mg was given. (BRIEN VALENTE) - Vital Signs Vital signs: Temp Pulse Resp BP Pulse Ox 98.9 F 111 H 17 148/85 H 97 10/13/16 18:23 10/13/16 18:23 10/13/16 18:23 10/13/16 18:23 10/13/16 18:23 - Laboratory Laboratory results interpreted by me: 10/13/16 10/13/16 16:00 16:00 MCV 99 H MCH 33.8 H RDW 15.1 H Potassium 3.4 L Glucose 74 L Salicylates < 1.0 L Acetaminophen < 10 L Discharge <PEBBLES LUCAS - Last Filed: 10/13/16 21:05> <BRIEN VALENTE - Last Filed: 10/13/16 23:53> - Discharge Clinical Impression: Medication refill Alcohol intoxication Qualifiers: Complication of substance-induced condition: uncomplicated Qualified Code(s): F10.920 - Alcohol use, unspecified with intoxication, uncomplicated Condition: Stable Disposition: HOME, SELF-CARE Instructions: Acute Alcohol Intoxication ([facility]) Additional Instructions: Please follow-up with your doctor and couselor this week. Prescriptions: Haloperidol [Haldol 5 mg Tablet] 5 mg PO QHS #30 tablet Trazodone HCl 50 mg PO QHS #30 tablet Hydrochlorothiazide 25 mg PO DAILY #30 tablet Losartan Potassium 100 mg PO DAILY #30 tablet Metformin HCl [Glucophage] 500 mg PO BID #60 tablet Referrals: VICKY ODONNELL MD [Primary Care Provider] - Follow up as needed Scribe Attestation: 10/13/16 23:53 I personally performed the services described in the documentation, reviewed and edited the documentation which was dictated to the scribe in my presence, and it accurately records my words and actions. (BRIEN VALENTE) Scribe Documentation - Scribe Written by Judy:: Judy Polk, 10/13/2016 1855 acting as scribe for :: Juan Manuel <PEBBLES LUCAS - Last Filed: 10/13/16 21:05>
[2016-10-13 16:30] LABS: ABSOLUTE LYMPHOCYTES (AUTO) 0.9 10^3/uL (0.5-4.7); ABSOLUTE MONOCYTES (AUTO) 0.3 10^3/uL (0.1-1.4); ABSOLUTE NEUT (AUTO) 3.1 10^3/uL (1.7-8.2); BASOPHILS % (AUTO) 0.4 % (0-2); EOSINOPHILS % (AUTO) 1.1 % (0-6); HEMATOCRIT 40.9 % (36.0-47.0); HGB HCT DIFFERENCE 1.1; LYMPHOCYTES % (AUTO) 19.8 % (13-45); MEAN CORPUSCULAR HEMOGLOBIN 33.8 pg (27.0-33.4); MEAN CORPUSCULAR HGB CONC 34.3 g/dL (32.0-36.0); MEAN CORPUSCULAR VOLUME 99 fl (80-97); MONOCYTES % (AUTO) 7.7 % (3-13); RED BLOOD COUNT 4.15 10^6/uL (3.72-5.28); RED CELL DISTRIBUTION WIDTH 15.1 % (11.5-14.0); WHITE BLOOD COUNT 4.3 10^3/uL (4.0-10.5)
[2016-10-13 16:52] LABS: ALANINE AMINOTRANSFERASE 28 U/L (9-52); ALBUMIN 4.5 g/dL (3.5-5.0); ALCOHOL 79 mg/dL (NONE DETECTED); ALKALINE PHOSPHATASE 90 U/L (38-126); ANION GAP 12 (5-19); ASPARTATE AMINO TRANSFERASE 31 U/L (14-36); BILIRUBIN,DIRECT 0.3 mg/dL (0.0-0.4); BILIRUBIN,TOTAL 0.5 mg/dL (0.2-1.3); BLOOD UREA NITROGEN 11 mg/dL (7-20); CALCIUM 9.5 mg/dL (8.4-10.2); CARBON DIOXIDE 30 mmol/L (22-30); CHLORIDE 101 mmol/L (98-107); CREATININE RESULT 0.75 mg/dL (0.52-1.25); GLUCOSE 74 mg/dL (75-110); POTASSIUM 3.4 mmol/L (3.6-5.0); SODIUM 142.5 mmol/L (137-145); TOTAL PROTEIN 7.8 g/dL (6.3-8.2)
[2016-10-13] MEDS ORDERED: HALOPERIDOL DECANOATE INJ 100 MG/1 ML VIAL IM ONE (18:06)
[2016-10-13 19:06] VITALS: BP 148/85
--- NOTE | 2016-10-14 13:05 | EKG REPORT ---
SEVERITY:- ABNORMAL ECG - SINUS RHYTHM LEFT ATRIAL ABNORMALITY LEFT VENTRICULAR HYPERTROPHY : Confirmed by: Nisha Fitzgerald 14-Oct-2016 13:05:08
== END 2016-10-13 18:30 | disposition home or self-care (01) ==
LOC: ER 13:56
DX: F10.120 Alcohol abuse with intoxication, uncomplicated (principal); Z76.0 Encounter for issue of repeat prescription; F20.9 Schizophrenia, unspecified; F17.210 Nicotine dependence, cigarettes, uncomplicated; I10 Essential (primary) hypertension; E11.9 Type 2 diabetes mellitus without complications; Z88.8 Allergy status to other drugs, medicaments and biological substances
CPT/HCPCS: 93005; 99284; 96372; 36415; 80307 ×3; 85025; 80053; 93010; J1631

== ENCOUNTER 2016-10-13 21:45 | Emergency (ER) | payer MEDICAID ==
[2016-10-13] MEDS ORDERED: ZIPRASIDONE MESYLATE INJ/PF 20 MG SDV IM ONE (21:51)
--- NOTE | 2016-10-13 22:05 | ER Document Report ---
ED General - General Stated Complaint: PSYCH EVAL Time Seen by Provider: 10/13/16 21:51 Notes: 51-year-old female with multiple ED visits for intoxication and psychotic behavior presents after she was found near the ambulance bay smoking and acting erratically. She was just discharged after an ED visit for intoxication. She states that she had a hoist operator and smoke some marijuana. She takes Haldol and Klonopin" trazodone" and she was seen earlier tonight by the ED team and discharged after being intoxicated. She currently denies suicidal or homicidal ideation. TRAVEL OUTSIDE OF THE [place] IN LAST 30 DAYS: No - Related Data Allergies/Adverse Reactions: STEROID Allergy (Uncoded 10/09/16 22:45) Past Medical History - General Information source: Patient - Social History Smoking Status: Current Every Day Smoker Family History: Reviewed & Not Pertinent, Other - Unobtainable due to altered mental status - Past Medical History Cardiac Medical History: Reports: Hx Hypertension Neurological Medical History: Reports: Hx Seizures Endocrine Medical History: Reports: Hx Diabetes Mellitus Type 2. Denies: Hx Diabetes Mellitus Type 1 Renal/ Medical History: Denies: Hx Peritoneal Dialysis Psychiatric Medical History: Reports: Hx Bipolar Disorder, Hx Depression, Hx Schizophrenia Past Surgical History: Reports: Other - Median sternotomy secondary to murmur noted at health department at age 8 - Immunizations Hx Diphtheria, Pertussis, Tetanus Vaccination: Yes Review of Systems - Review of Systems Notes: REVIEW OF SYSTEMS GEN: Denies fever, chills, weight loss ENT: Denies sore throat, nasal discharge, ear pain EYES: Denies blurry vision, eye pain, discharge CV: Denies chest pain, palpitations, edema RESP: Denies cough, shortness of breath, wheezing GI: Denies abdominal pain, nausea, vomiting, diarrhea MSK: Denies joint pain/swelling, edema, SKIN: Denies rash, skin lesions LYMPH: Denies swollen glands/lymph nodes NEURO: Denies headache, focal weakness or numbness, dizziness PSYCH: Admits to substance abuse but denies homicidal or suicidal ideation PHYSICAL EXAMINATION General: No acute distress, well-nourished Head: Atraumatic, normocephalic ENT: Mouth normal, oropharynx moist, no exudates or tonsillar enlargement Eyes: Conjunctiva normal, pupils equal, lids normal Neck: No JVD, supple, no guarding CVS: Normal rate, regular rhythm, no murmurs Resp: No resp distress, equal and normal breath sounds bilaterally GI: Nondistended, soft, no tenderness to palpation, no rebound or guarding Ext: No deformities, no edema, normal range of motion in upper and lower ext Back: No CVA or midline TTP Skin: No rash, warm Lymphatic: No lymphadeopathy noted Neuro: Awake, alert. Face symmetric. GCS 15. History: Affect colorful not responding to internal stimuli, thought process linear. Appears intoxicated. Course - Re-evaluation Re-evalutation: 10/13/16 22:04 51-year-old lady with chronic psychiatric illness presents after being intoxicated. She appears intoxicated again. She was here today and did not meet IVC criteria, and she still does not meet IVC criteria. I will give her some Geodon to calm her down and reassess her. 10/14/16 00:17 Patient is well sedated. She has failed intensive social work for 3 days getting her medications taken care of and is now considered gravely disabled. I placed her on IVC paperwork, ordered a suite of laboratory testing and she will be evaluated by psychiatry in the morning. Discharge - Discharge Clinical Impression: Chronic schizophrenia, Alcohol abuse Condition: Good Disposition: PSYCH HOSP/UNIT Additional Instructions: reforestation worker is already helping him get your meds. Please stop drinking and using drugs and take her medicine as prescribed.
[2016-10-14 02:20] LABS: ABSOLUTE EOSINOPHILS # (AUTO) 0.1 10^3/uL (0.0-0.6); ABSOLUTE LYMPHOCYTES (AUTO) 1.6 10^3/uL (0.5-4.7); ABSOLUTE MONOCYTES (AUTO) 0.5 10^3/uL (0.1-1.4); ABSOLUTE NEUT (AUTO) 2.3 10^3/uL (1.7-8.2); HEMATOCRIT 39.2 % (36.0-47.0); HEMOGLOBIN 13.6 g/dL (12.0-15.5); HGB HCT DIFFERENCE 1.6; LYMPHOCYTES % (AUTO) 34.5 % (13-45); MEAN CORPUSCULAR HEMOGLOBIN 33.8 pg (27.0-33.4); MEAN CORPUSCULAR HGB CONC 34.6 g/dL (32.0-36.0); MEAN CORPUSCULAR VOLUME 98 fl (80-97); MONOCYTES % (AUTO) 11.3 % (3-13); RED BLOOD COUNT 4.02 10^6/uL (3.72-5.28); RED CELL DISTRIBUTION WIDTH 14.9 % (11.5-14.0); SEGMENTED NEUTROPHILS % (AUTO) 50.2 % (42-78); WHITE BLOOD COUNT 4.6 10^3/uL (4.0-10.5)
[2016-10-14 02:48] LABS: ALANINE AMINOTRANSFERASE 33 U/L (9-52); ALBUMIN 4.2 g/dL (3.5-5.0); ALKALINE PHOSPHATASE 98 U/L (38-126); ANION GAP 12 (5-19); ASPARTATE AMINO TRANSFERASE 28 U/L (14-36); BILIRUBIN,DIRECT 0.4 mg/dL (0.0-0.4); BILIRUBIN,TOTAL 0.6 mg/dL (0.2-1.3); BLOOD UREA NITROGEN 13 mg/dL (7-20); CALCIUM 9.5 mg/dL (8.4-10.2); CARBON DIOXIDE 29 mmol/L (22-30); CHLORIDE 102 mmol/L (98-107); CREATININE RESULT 0.82 mg/dL (0.52-1.25); GLUCOSE 118 mg/dL (75-110); POTASSIUM 3.5 mmol/L (3.6-5.0); SODIUM 142.7 mmol/L (137-145); TOTAL PROTEIN 7.5 g/dL (6.3-8.2)
[2016-10-14 02:51] LABS: ALCOHOL < 10 mg/dL (NONE DETECTED)
--- NOTE | 2016-10-14 10:05 | ER Document Report ---
Doctor's Note Notes: 10/14/16 10:04 Rounds: Chart reviewed. Patient interviewed, but I cannot understand anything she says. She has a long history of psychiatric disorder as well as alcoholism. She has been here on several occasions when she has been intoxicated, although on this admission, her alcohol level was not elevated. She has been to this emergency department for the eighth time this visit in the past 8 weeks. Vital signs are all normal. Patient appears to be medically stable for transfer or discharge. Sherrell Martins MD 10/14/16 10:53 Patient is acting out has become very loud and disruptive. I am giving her 20 mg of Geodon IM.
[2016-10-14] MEDS ORDERED: ZIPRASIDONE MESYLATE INJ/PF 20 MG SDV IM ONE (10:50)
[2016-10-14] MEDS ORDERED: NICOTINE 21 MG/24 HR PATCH.TD24 TD ONE (10:54)
--- NOTE | 2016-10-14 11:45 | ER Document Report ---
ED Psych Disorder / Suicide - General TRAVEL OUTSIDE OF THE U.[place]. IN LAST 30 DAYS: No <JILL LEYVA - Last Filed: 10/14/16 11:32> <NICKHALEIGH - Last Filed: 10/14/16 16:20> - General Chief Complaint: Psych Problem Stated Complaint: PSYCH EVAL Time Seen by Provider: 10/13/16 21:51 - HPI Notes: Patient is a 51-year-old woman well-known to this emergency department, with multiple ED visits for psychotic behavior presents after she was found near the ambulance bay smoking and acting erratically. She was just discharged after an ED visit for intoxication. She states that she had a correction officer reformatory and smoke some marijuana. She takes Haldol and Klonopin" trazodone" and she was seen earlier last evening by the ED team and discharged after being intoxicated. She currently denies suicidal or homicidal ideation. Patient laughs with clinician and states she is "good" and ready to go home. Patient and clinician discussed patient's recent visits to [facility] ED. Patient states "yes" but is unable to communicate why this is occurring. Clinician attempted phone call to DSS Doreen muñoz: Left message. Patient is alert and orientated to person, place, time and circumstance. Mood is labile with labile affect. Patient denies suicidal and homicidal ideation. Patient's baseline include some delusions of religiosity, hallucinations, and behavorial outbursts. Currently, patient is not verbalizing or demonstrating acute psychosis. Thought process is currently organized and linear. Conversational speech is baseline for patient-variable with yelling at times and other times of soft "baby-talk" speech. Eye contact was well-maintained. Intellectual abilities appear to be within average range. Attention and concentration are fair. Insight, judgment, impulse control are historically poor. Diagnosis: 295.90 (F20.9) Schizophrenia Impression/Plan: Patient is recommended for rescind of IVC and psychiatrically cleared and recommended for rescind IVC. Patient does not meet IVC criteria per [place] GS 122C. Patient's overall presentation is congruent with her baseline functioning, which as noted above, includes psychosis and alba. Currently, patient is demonstrating behaviour congruent with behavioral outbursts. Patient denies SI.HI. Dr. Allison was consulted on the care and management of this patient; attending physician is in agreement with recommendations and disposition. (JILL LEYVA) - Related Data Allergies/Adverse Reactions: STEROID Allergy (Uncoded 10/09/16 22:45) Past Medical History - General Information source: Patient - Social History Smoking Status: Current Every Day Smoker Family History: Reviewed & Not Pertinent, Other - Unobtainable due to altered mental status - Past Medical History Cardiac Medical History: Reports: Hx Hypertension Neurological Medical History: Reports: Hx Seizures Endocrine Medical History: Reports: Hx Diabetes Mellitus Type 2. Denies: Hx Diabetes Mellitus Type 1 Renal/ Medical History: Denies: Hx Peritoneal Dialysis Psychiatric Medical History: Reports: Hx Bipolar Disorder, Hx Depression, Hx Schizophrenia Past Surgical History: Reports: Other - Median sternotomy secondary to murmur noted at health department at age 8 - Immunizations Hx Diphtheria, Pertussis, Tetanus Vaccination: Yes <JILL LEYVA - Last Filed: 10/14/16 11:32> Course - Laboratory Result Diagrams: 10/14/16 02:10 10/14/16 02:10 <JILL LEYVA - Last Filed: 10/14/16 11:32> - Laboratory Result Diagrams: 10/14/16 02:10 10/14/16 02:10 <HALEIGH ROMERO - Last Filed: 10/14/16 16:20> - Vital Signs Vital signs: Temp Pulse Resp BP Pulse Ox 78 20 168/69 H 98 10/14/16 07:03 10/14/16 07:03 10/14/16 07:03 10/14/16 07:03 - Laboratory Laboratory results interpreted by me: 10/14/16 10/14/16 02:10 02:10 MCV 98 H MCH 33.8 H RDW 14.9 H Potassium 3.5 L Glucose 118 H Salicylates < 1.0 L Acetaminophen < 10 L Discharge <JILL LEYVA - Last Filed: 10/14/16 11:32> <HALEIGH ROMERO - Last Filed: 10/14/16 16:20> - Discharge Clinical Impression: Chronic schizophrenia, Alcohol abuse Condition: Good Disposition: PSYCH HOSP/UNIT Additional Instructions: family services worker is already helping him get your meds. Please stop drinking and using drugs and take her medicine as prescribed.
[2016-10-14 16:33] VITALS: BP 152/96
== END 2016-10-14 16:34 ==
LOC: ER 21:45
DX: F20.9 Schizophrenia, unspecified (principal); F31.9 Bipolar disorder, unspecified; F10.20 Alcohol dependence, uncomplicated; E11.9 Type 2 diabetes mellitus without complications; I10 Essential (primary) hypertension; F17.200 Nicotine dependence, unspecified, uncomplicated; Z88.8 Allergy status to other drugs, medicaments and biological substances; Z79.899 Other long term (current) drug therapy
CPT/HCPCS: 99284; 96372; 36415; 80307 ×3; 85025; 80053; J3486

== ENCOUNTER 2016-10-17 23:49 | Emergency (ER) | payer MEDICAID ==
[2016-10-18 00:31] LABS: ABSOLUTE EOSINOPHILS # (AUTO) 0.1 10^3/uL (0.0-0.6); ABSOLUTE LYMPHOCYTES (AUTO) 1.8 10^3/uL (0.5-4.7); ABSOLUTE MONOCYTES (AUTO) 0.6 10^3/uL (0.1-1.4); ABSOLUTE NEUT (AUTO) 3.1 10^3/uL (1.7-8.2); BASOPHILS % (AUTO) 0.8 % (0-2); EOSINOPHILS % (AUTO) 1.3 % (0-6); HEMATOCRIT 37.7 % (36.0-47.0); HEMOGLOBIN 13.1 g/dL (12.0-15.5); HGB HCT DIFFERENCE 1.6; LYMPHOCYTES % (AUTO) 32.1 % (13-45); MEAN CORPUSCULAR HGB CONC 34.7 g/dL (32.0-36.0); MEAN CORPUSCULAR VOLUME 98 fl (80-97); MONOCYTES % (AUTO) 10.5 % (3-13); RED BLOOD COUNT 3.85 10^6/uL (3.72-5.28); RED CELL DISTRIBUTION WIDTH 14.4 % (11.5-14.0); SEGMENTED NEUTROPHILS % (AUTO) 55.3 % (42-78); WHITE BLOOD COUNT 5.7 10^3/uL (4.0-10.5)
[2016-10-18 00:43] LABS: ALANINE AMINOTRANSFERASE 34 U/L (9-52); ALBUMIN 4.4 g/dL (3.5-5.0); ALKALINE PHOSPHATASE 81 U/L (38-126); ANION GAP 11 (5-19); ASPARTATE AMINO TRANSFERASE 26 U/L (14-36); BILIRUBIN,DIRECT 0.4 mg/dL (0.0-0.4); BILIRUBIN,TOTAL 0.9 mg/dL (0.2-1.3); BLOOD UREA NITROGEN 13 mg/dL (7-20); CALCIUM 9.8 mg/dL (8.4-10.2); CARBON DIOXIDE 30 mmol/L (22-30); CHLORIDE 102 mmol/L (98-107); CREATININE RESULT 0.76 mg/dL (0.52-1.25); GLUCOSE 140 mg/dL (75-110); POTASSIUM 3.8 mmol/L (3.6-5.0); SODIUM 142.5 mmol/L (137-145)
[2016-10-18 00:47] LABS: ALCOHOL < 10 mg/dL (NONE DETECTED)
--- NOTE | 2016-10-18 02:12 | ER Document Report ---
ED General - General TRAVEL OUTSIDE OF THE [place]. IN LAST 30 DAYS: No - HPI Patient complains to provider of: Psychiatric evaluation <LIDIA SHETTY - Last Filed: 10/18/16 05:58> <DORY MONGE - Last Filed: 10/18/16 15:30> - General Chief Complaint: Psych Problem Stated Complaint: PSYCH PROBLEM Time Seen by Provider: 10/18/16 00:23 - HPI Notes: Patient is coming in for psychiatric evaluation. Patient has multiple visits here to the ER for psychiatric evaluation is history of bipolar disease schizophrenia. According to nursing staff patient was at a local gas station when she was picked up by the police and brought into the ER patient is calm cooperative denies any SI or HI however upon nursing staff entering the patient' s room became combative requiring security and requiring four-point restraints threatening the nursing staff with physical harm. Upon my evaluation patient is in 4 point restraints. Patient would not answer any questions at this time stares at me with a blank look. Most of the HPI is obtained from the nursing staff (LIDIA SHETTY) - Related Data Allergies/Adverse Reactions: STEROID Allergy (Uncoded 10/18/16 14:15) Past Medical History - Social History Smoking Status: Current Every Day Smoker Chew tobacco use (# tins/day): No Family History: Reviewed & Not Pertinent, Other - Unobtainable due to altered mental status - Past Medical History Cardiac Medical History: Reports: Hx Hypertension Neurological Medical History: Reports: Hx Seizures Endocrine Medical History: Reports: Hx Diabetes Mellitus Type 2. Denies: Hx Diabetes Mellitus Type 1 Renal/ Medical History: Denies: Hx Peritoneal Dialysis Psychiatric Medical History: Reports: Hx Bipolar Disorder, Hx Depression, Hx Schizophrenia Past Surgical History: Reports: Other - Median sternotomy secondary to murmur noted at health department at age 8 - Immunizations Hx Diphtheria, Pertussis, Tetanus Vaccination: Yes <LIDIA SHETTY - Last Filed: 10/18/16 05:58> Review of Systems - Review of Systems Constitutional: No symptoms reported EENT: No symptoms reported Cardiovascular: No symptoms reported Respiratory: No symptoms reported Gastrointestinal: No symptoms reported Genitourinary: No symptoms reported Female Genitourinary: No symptoms reported Musculoskeletal: No symptoms reported Skin: No symptoms reported Hematologic/Lymphatic: No symptoms reported Neurological/Psychological: Other - Aggressive behavior towards nursing staff <LIDIA SHETTY - Last Filed: 10/18/16 05:58> Physical Exam - Vital signs Interpretation: Normal - General General appearance: Appears well, Alert - HEENT Head: Normocephalic, Atraumatic Eyes: Normal Pupils: PERRL - Respiratory Respiratory status: No respiratory distress Chest status: Nontender Breath sounds: Normal Chest palpation: Normal - Cardiovascular Rhythm: Regular Heart sounds: Normal auscultation Murmur: No - Abdominal Inspection: Normal Distension: No distension Bowel sounds: Normal Tenderness: Nontender Organomegaly: No organomegaly - Back Back: Normal, Nontender - Extremities General upper extremity: Normal inspection, Nontender, Normal color, Normal ROM , Normal temperature General lower extremity: Normal inspection, Nontender, Normal color, Normal ROM , Normal temperature, Normal weight bearing. No: Tierney's sign - Neurological Neuro grossly intact: Yes Cognition: Normal Orientation: AAOx4 [place] Coma Scale Eye Opening: Spontaneous Rubin Coma Scale Verbal: Oriented [place] Coma Scale Motor: Obeys Commands Rubin Coma Scale Total: 15 Speech: Normal Motor strength normal: LUE, RUE, LLE, RLE Sensory: Normal - Psychological Associated symptoms: Flat affect - Skin Skin Temperature: Warm Skin Moisture: Dry Skin Color: Normal <LIDIA SHETTY - Last Filed: 10/18/16 05:58> Course - Laboratory Result Diagrams: 10/18/16 00:10 10/18/16 00:10 <LIDIA SHETTY - Last Filed: 10/18/16 05:58> - Laboratory Result Diagrams: 10/18/16 00:10 10/18/16 00:10 <DORY MONGE - Last Filed: 10/18/16 15:30> - Re-evaluation Re-evalutation: 10/18/16 02:11 Patient with multiple visits here for psychiatric issues in the past. At this time lab work reveals no critical pathology still with multiple re-evaluations patient remains to be nonverbal. Except for acute psychosis I will place the patient on IVC paperwork disposition pending morning 10/18/16 05:58 Laboratory studies show no critical pathology. More likely patient is probably at baseline however will hold on IVC paperwork until psychiatric team can evaluate patient (LIDIA SHETTY) - Vital Signs Vital signs: Temp Pulse Resp BP Pulse Ox 98.5 F 79 16 147/90 H 96 10/18/16 11:53 10/18/16 11:53 10/18/16 11:53 10/18/16 11:53 10/18/16 11:53 - Laboratory Laboratory results interpreted by me: 10/18/16 10/18/16 00:10 00:10 MCV 98 H MCH 34.0 H RDW 14.4 H Glucose 140 H Salicylates < 1.0 L Acetaminophen < 10 L Discharge <LIDIA SHETTY - Last Filed: 10/18/16 05:58> <DORY MONGE - Last Filed: 10/18/16 15:30> - Discharge Clinical Impression: Schizoaffective disorder, bipolar type Condition: Stable Disposition: HOME, SELF-CARE Additional Instructions: Schizophrenia Schizophrenia is a chemical disorder that affects how the brain functions. The exact cause is unknown, but it tends to run in families. It is NOT caused by emotional trauma. Schizophrenia causes disordered thinking, including unusual beliefs and inability to "process" happenings around the patient. Patients with schizophrenia benefit greatly from medicine. These medicines are called antipsychotics. Never stop the medicine without the doctor 's approval. Counselling may help the patient deal with his disease. Schizophrenics require a very ordered environment. Stresses and sudden changes may bring out symptoms. Drugs and alcohol abuse may become problems. Contact the counsellor or crisis line if there are thoughts of suicide or of harming others, or if you become aware of unusual thoughts or beliefs Please take your medications as prescribed. Please follow up with your provider this week for continued medication management. Referrals: [facility] [Provider Group] - Follow up in 3-5 days VICKY ODONNELL MD [Primary Care Provider] - Follow up as needed
[2016-10-18] MEDS ORDERED: ONDANSETRON 4 MG TAB.RAPDIS PO ONE (04:13)
--- NOTE | 2016-10-18 07:50 | EKG REPORT ---
SEVERITY:- ABNORMAL ECG - SINUS RHYTHM ATRIAL PREMATURE COMPLEX LEFT ATRIAL ABNORMALITY LEFT VENTRICULAR HYPERTROPHY : Confirmed by: Abdi Coles MD 18-Oct-2016 07:49:47
[2016-10-18] MEDS ORDERED: HALOPERIDOL 5 MG TABLET PO SCH (10:45)
[2016-10-18] MEDS ORDERED: BENZTROPINE MESYLATE 1 MG TABLET PO SCH (11:00)
[2016-10-18] MEDS ORDERED: HYDROCHLOROTHIAZIDE 12.5 MG CAPSULE PO SCH (11:00)
[2016-10-18] MEDS ORDERED: VALSARTAN 40 MG TABLET PO SCH (11:00)
[2016-10-18] MEDS ORDERED: PENICILLAMINE 250 MG PO SCH ×2 (11:00→22:00)
--- NOTE | 2016-10-18 11:10 | ER Document Report ---
Doctor's Note Notes: 10/18/16 11:07 This 51-year-old female patient came into the emergency room last night in her usual state requiring sedation. She has been here several times in the past week. The psychiatry and emergency room staff quite frustrated over the lack of progress made by DSS and Adult Protective Services and going to court to obtain custody over this patient. She is still free to wander the streets at night and shows up naked and screaming in parking lots and neighborhoods. Today she began acting in her usual mode of being unresponsive then jumping out of bed and screaming and demanding the [employer] break her out of here. She will be started on her regular medications, as we do not know how long it will take to get a disposition on this visit.
--- NOTE | 2016-10-18 11:34 | ER Document Report ---
ED Psych Disorder / Suicide - General Chief Complaint: Psych Problem Stated Complaint: PSYCH PROBLEM Time Seen by Provider: 10/18/16 00:23 Information source: Patient, Legal Guardian - CPS workernot guardian, [facility] Records Cannot obtain history due to: Uncooperative TRAVEL OUTSIDE OF THE [place] IN LAST 30 DAYS: No - HPI Patient complains to provider of: Bizarre behavior Onset: Other Onset was: Cannot confirm Suicide Risk Factors: Lack of social support, Schizophrenia - Schizoaffective Disorder, Bipolar Type, Substance abuse Situational problems related to: Other - homeless Normal mood: No Associated symptoms: Irritable, Labile, Manic, Tangential speech Similar symptoms previously: Yes Recently seen / treated by doctor: Yes - multiple visits over the past week Notes: Patient is a 51 year old female who presents via [employer] after she was found with bizarre behaviors and brought to the ED. Patient is well known to this clinician and this department for numerous prior episodes of similar etiology. Patient today states she has mental illness and medical illnesses. She then starts screaming and states I need to contact the [employer]. Patient continues to yell. Patient offered a diet Pepsi. Doreen Knott : Multiple attempts were made at contacting. Messages left requesting return contact. Machine Clothing Man, Paul Izaguirre is out of the office. Patient is A&O. Mood is labile with congruent affects; however, also presents redirectable. Patient denies suicidal/homicidal ideation, intent, plan, or means. Patient denies A/V H. Thought processes were tangential. Conversational speech was labile for prosody. Attention and focus were poor. Insight, judgment , and impulse control were poor. Schizoaffective Disorder, Bipolar Type Patient is psychiatrically cleared for discharge. Patient is recommended to rescind IVC and discharge to follow up with her outpatient provider. Patient presents at her baseline functioning. Patient's current needs are social in nature, which do exasperate her symptoms; however, do not meet criteria for IVC , eg homelessness. Multiple attempts were made at contacting her SW. I consulted with Dr. Allison in regards to the care and management of this patient. - Related Data Allergies/Adverse Reactions: STEROID Allergy (Uncoded 10/18/16 14:15) Past Medical History - General Information source: Patient, Law Enforcement, [facility] Records, Outside Facility Records - Social History Smoking Status: Current Every Day Smoker Chew tobacco use (# tins/day): No Family History: Reviewed & Not Pertinent, Other - Unobtainable due to altered mental status Patient has suicidal ideation: No Patient has homicidal ideation: No - Past Medical History Cardiac Medical History: Reports: Hx Hypertension Neurological Medical History: Reports: Hx Seizures Endocrine Medical History: Reports: Hx Diabetes Mellitus Type 2. Denies: Hx Diabetes Mellitus Type 1 Renal/ Medical History: Denies: Hx Peritoneal Dialysis Psychiatric Medical History: Reports: Hx Bipolar Disorder, Hx Depression, Hx Schizophrenia Past Surgical History: Reports: Other - Median sternotomy secondary to murmur noted at health department at age 8 - Immunizations Hx Diphtheria, Pertussis, Tetanus Vaccination: Yes Physical Exam - Vital signs Vitals: Temp Pulse Resp BP Pulse Ox 97.6 F 93 19 197/109 H 99 10/18/16 00:26 10/18/16 00:26 10/18/16 00:26 10/18/16 00:26 10/18/16 00:26 Course - Vital Signs Vital signs: Temp Pulse Resp BP Pulse Ox 98.5 F 79 16 147/90 H 96 10/18/16 11:53 10/18/16 11:53 10/18/16 11:53 10/18/16 11:53 10/18/16 11:53 - Laboratory Result Diagrams: 10/18/16 00:10 10/18/16 00:10 Laboratory results interpreted by me: 10/18/16 10/18/16 00:10 00:10 MCV 98 H MCH 34.0 H RDW 14.4 H Glucose 140 H Salicylates < 1.0 L Acetaminophen < 10 L Discharge - Discharge Clinical Impression: Schizoaffective disorder, bipolar type Condition: Stable Disposition: HOME, SELF-CARE Additional Instructions: Schizophrenia Schizophrenia is a chemical disorder that affects how the brain functions. The exact cause is unknown, but it tends to run in families. It is NOT caused by emotional trauma. Schizophrenia causes disordered thinking, including unusual beliefs and inability to "process" happenings around the patient. Patients with schizophrenia benefit greatly from medicine. These medicines are called antipsychotics. Never stop the medicine without the doctor 's approval. Counselling may help the patient deal with his disease. Schizophrenics require a very ordered environment. Stresses and sudden changes may bring out symptoms. Drugs and alcohol abuse may become problems. Contact the counsellor or crisis line if there are thoughts of suicide or of harming others, or if you become aware of unusual thoughts or beliefs Please take your medications as prescribed. Please follow up with your provider this week for continued medication management. Referrals: VICKY ODONNELL MD [Primary Care Provider] - Follow up as needed [facility] [Provider Group] - Follow up in 3-5 days
[2016-10-18] MEDS ORDERED: METFORMIN HCL 500 MG TABLET PO SCH ×2 (12:00→17:00)
[2016-10-18] MEDS ORDERED: PENICILLAMINE 250 MG PO ONE (12:30)
[2016-10-18] MEDS ORDERED: VALSARTAN 40 MG TABLET PO ONE (13:00)
[2016-10-18] MEDS ORDERED: NICOTINE 14 MG/24 HR PATCH.TD24 TD ONE (13:51)
[2016-10-18] MEDS ORDERED: CLONIDINE HCL 0.1 MG TABLET PO ONE (15:47)
[2016-10-18 17:41] VITALS: BP 169/79
[2016-10-18] MEDS ORDERED: TRAZODONE HCL 50 MG TABLET PO SCH (22:00)
[2016-10-19] MEDS ORDERED: VALSARTAN 40 MG TABLET PO SCH (10:00)
== END 2016-10-18 17:35 | disposition home or self-care (01) ==
LOC: ER 23:49
DX: F25.0 Schizoaffective disorder, bipolar type (principal); I10 Essential (primary) hypertension; E11.9 Type 2 diabetes mellitus without complications; F17.200 Nicotine dependence, unspecified, uncomplicated; Z78.1 Physical restraint status
CPT/HCPCS: 93005; 99285; 36415; 80307 ×3; 85025; 80053; 93010; J3490 ×3

== ENCOUNTER 2016-11-08 17:52 | Emergency (ER) | payer MEDICAID, OTHER ==
[2016-11-08 17:58] VITALS: BP 167/92
--- NOTE | 2016-11-08 18:29 | ER Document Report ---
HPI - HPI Patient complains to provider of: Medication refill Onset: Other - Last month Quality of pain: No pain Severity: None Pain Level: Denies Associated Symptoms: Other - Refills on her psych meds metformin and hydrochlorothiazide and losartan. Exacerbated by: Denies Relieved by: Denies Similar symptoms previously: Yes Recently seen / treated by doctor: Yes - ROS ROS below otherwise negative: Yes - CONSTITUTIONAL Constitutional: DENIES: Fever, Chills - EENT EENT: DENIES: Sore Throat, Ear Pain, Nasal Drainage-Clear, Nasal Drainage- Purulent, Congestion, Eye problems - NEURO Neurology: DENIES: Headache, Weakness, Vision blurred, Dizzinesss / Vertigo - CARDIOVASCULAR Cardiovascular: DENIES: Chest pain - RESPIRATORY Respiratory: DENIES: Trouble Breathing, Coughing - GASTROINTESTINAL Gastrointestinal: DENIES: Abdominal Pain, Nausea, Patient vomiting, Diarrhea, Constipation, Black / Bloody Stools - URINARY Urinary: DENIES: Dysuria, Urgency, Frequency - REPRODUCTIVE Reproductive: DENIES: :, Postmenopausal, Abnormal bleeding / discharge - MUSCULOSKELETAL Musculoskeletal: DENIES: Extremity pain, Back Pain, Neck Pain, Swelling - DERM Skin Color: Normal Past Medical History - General Information source: Patient - Social History Smoking Status: Current Every Day Smoker Cigarette use (# per day): Yes Chew tobacco use (# tins/day): No Smoking Education Provided: Yes - less than 2 min Frequency of alcohol use: None Drug Abuse: None Lives with: Homeless Family History: Reviewed & Not Pertinent, Other - Unobtainable due to altered mental status Patient has suicidal ideation: No Patient has homicidal ideation: No - Past Medical History Cardiac Medical History: Reports: Hx Hypertension Pulmonary Medical History: Reports: None EENT Medical History: Reports: None Neurological Medical History: Reports: Hx Seizures Endocrine Medical History: Reports: Hx Diabetes Mellitus Type 2 Renal/ Medical History: Reports: None Malignancy Medical History: Reports: None GI Medical History: Reports: None Musculoskeltal Medical History: Reports None Skin Medical History: Reports None Psychiatric Medical History: Reports: Hx Bipolar Disorder, Hx Depression, Hx Schizophrenia Traumatic Medical History: Reports: None Infectious Medical History: Reports: None Past Surgical History: Reports: Hx Cardiac Surgery - as child, Other - Median sternotomy secondary to murmur noted at health department at age 8 - Immunizations Immunizations up to date: Yes Hx Diphtheria, Pertussis, Tetanus Vaccination: Yes Vertical Provider Document - CONSTITUTIONAL Agree With Documented VS: Yes General Appearance: WD/WN - INFECTION CONTROL TRAVEL OUTSIDE OF THE [place] IN LAST 30 DAYS: No - HEENT HEENT: Atraumatic, Normocephalic - RESPIRATORY Respiratory: Breath Sounds Normal, No Respiratory Distress O2 Sat by Pulse Oximetry: 98 - CARDIOVASCULAR Cardiovascular: Regular Rate, Regular Rhythm - MUSCULOSKELETAL/EXTREMETIES Musculoskeletal/Extremeties: MAEW, FROM, Non-Tender - NEURO Level of Consciousness: Awake, Alert Motor/Sensory: No Motor Deficit Course - Re-evaluation Re-evalutation: 11/08/16 18:40 This patient was in her normal agitated state as she has schizophrenia. She came in to get her trazodone losartan hydrochlorothiazide Haldol and metformin refilled. She states she is homeless does not have a primary doctor and cannot afford to go to a doctor. She has been here multiple times for psych issues. Prescriptions were transmitted to be [facility] on [address] per her request. I consult to Dr. Gómez before filling the subjects and she said no go ahead and fill him. These prescriptions were sent to drug store. - Vital Signs Vital signs: Temp Pulse Resp BP Pulse Ox 98.8 F 90 18 167/92 H 98 11/08/16 17:56 11/08/16 17:56 11/08/16 17:56 11/08/16 17:56 11/08/16 17:56 Discharge - Discharge Clinical Impression: Medication refill Condition: Stable Disposition: HOME, SELF-CARE Instructions: Family Physicians / Practices Additional Instructions: You were seen today for medication refills. A prescription for losartan hydrochlorothiazide trazodone and Haldol were sent to [facility] at [address]. These follow up with 1 of the primary providers are provided and also follow-up with the mental health provider. FOLLOW-UP CARE: If you have been referred to a physician for follow-up care, call the physician s office for an appointment as you were instructed or within the next two days. If you experience worsening or a significant change in your symptoms, notify the physician immediately or return to the Emergency Department at any time for re-evaluation. Prescriptions: Haloperidol [Haldol 5 mg Tablet] 10 mg PO QHS #60 tablet Trazodone HCl 50 mg PO QHS #30 tablet Haloperidol [Haldol 5 mg Tablet] 5 mg PO QAM #30 tablet Hydrochlorothiazide 25 mg PO DAILY #30 tablet Losartan Potassium 100 mg PO DAILY #30 tablet Metformin HCl 500 mg PO BID #60 tablet Forms: Elevated Blood Pressure Referrals: [facility] [Provider Group] - Follow up as needed
== END 2016-11-08 18:40 | disposition home or self-care (01) ==
LOC: ER 17:52
DX: Z76.0 Encounter for issue of repeat prescription (principal); F20.9 Schizophrenia, unspecified; E11.9 Type 2 diabetes mellitus without complications; I10 Essential (primary) hypertension; F17.210 Nicotine dependence, cigarettes, uncomplicated; Z71.6 Tobacco abuse counseling; Z59.0 Homelessness
CPT/HCPCS: 99281

== ENCOUNTER 2016-11-10 06:05 | Emergency (ER) | payer MEDICAID ==
--- NOTE | 2016-11-10 06:40 | ER Document Report ---
ED Psych Disorder / Suicide - General Mode of Arrival: Medic Information source: Patient TRAVEL OUTSIDE OF THE [place] IN LAST 30 DAYS: No - General Chief Complaint: Psych Problem Stated Complaint: PSYCH EVAL Time Seen by Provider: 11/10/16 06:19 Notes: Patient is a 51 year old female that presents today in what is her 8th visit this month to the emergency department after being found at the [facility] [place] acting in a bizarre fashion. EMS reported to the nurse that the patient wanted a medication change. Patient's presentation today is consistent with her baseline presentation in this ED. Patient has no complaints and is easily redirectable. (PEBBLES LUCAS) - Related Data Allergies/Adverse Reactions: STEROID Allergy (Uncoded 11/08/16 17:55) Past Medical History - General Information source: Patient - Social History Smoking Status: Current Every Day Smoker Cigarette use (# per day): Yes Frequency of alcohol use: Social Lives with: Alone Family History: Reviewed & Not Pertinent, Other - Unobtainable due to altered mental status - Past Medical History Cardiac Medical History: Reports: Hx Hypertension Neurological Medical History: Reports: Hx Seizures Endocrine Medical History: Reports: Hx Diabetes Mellitus Type 2 Psychiatric Medical History: Reports: Hx Bipolar Disorder, Hx Depression, Hx Schizophrenia Past Surgical History: Reports: Hx Cardiac Surgery - as child, Other - Median sternotomy secondary to murmur [facility] at age 8 - Immunizations Immunizations up to date: Yes Hx Diphtheria, Pertussis, Tetanus Vaccination: Yes Review of Systems - Review of Systems Constitutional: No symptoms reported EENT: No symptoms reported Cardiovascular: No symptoms reported Respiratory: No symptoms reported Gastrointestinal: No symptoms reported Genitourinary: No symptoms reported Female Genitourinary: No symptoms reported Musculoskeletal: No symptoms reported Skin: No symptoms reported Hematologic/Lymphatic: No symptoms reported Neurological/Psychological: No symptoms reported -: Yes All other systems reviewed and negative Physical Exam - Vital signs Vitals: Temp Pulse Resp BP Pulse Ox 97.0 F 94 24 H 180/94 H 98 11/10/16 06:19 11/10/16 06:19 11/10/16 06:19 11/10/16 06:19 11/10/16 06:19 - Notes Notes: Physical Exam: General: Alert, appears well. HEENT: Normocephalic. Atraumatic. PERRLA. Extraocular movements intact. Oropharynx clear. Neck: Supple. Respiratory: No respiratory distress. Abdominal: Normal Inspection. No distension. Extremities: Moves all four extremities. Neurological: Normal cognition. AAOx4. Normal speech. Psychological: Patient here with normal presentation - Screaming bizarre nonsensical speech, beating on chest saying that she is Vincnet Garza. Patient easily redirected and speaking coherently with clear thought process after redirection. Skin: Warm. Dry. Normal color. (PEBBLES LUCAS) - Vital Signs Vital signs: Temp Pulse Resp BP Pulse Ox 97.0 F 94 24 H 180/94 H 98 11/10/16 06:19 11/10/16 06:19 11/10/16 06:19 11/10/16 06:19 11/10/16 06:19 Discharge - Discharge Clinical Impression: Poor compliance with medication Schizoaffective disorder Qualifiers: Schizoaffective disorder type: bipolar Qualified Code(s): F25.0 - Schizoaffective disorder, bipolar type Condition: Stable Disposition: HOME, SELF-CARE Additional Instructions: TAKE YOUR MEDICATIONS. FOLLOW UP WITH YOUR MENTAL HEALTH PROVIDERS. Scribe Attestation: 11/10/16 06:44 I personally performed the services described in the documentation, reviewed and edited the documentation which was dictated to the scribe in my presence, and it accurately records my words and actions. (DORY MONGE) Scribe Documentation - Scribe Written by Scribe:: Judy Polk, 11/10/2016 0729 acting as scribe for :: Chani
[2016-11-10 07:13] VITALS: BP 170/65
== END 2016-11-10 07:11 | disposition home or self-care (01) ==
LOC: ER 06:05
DX: F25.0 Schizoaffective disorder, bipolar type (principal); Z91.14 Patient's other noncompliance with medication regimen; F17.210 Nicotine dependence, cigarettes, uncomplicated
CPT/HCPCS: 99284